=== PATIENT | male | born 1945 | race Caucasian/White ===

== ENCOUNTER 2020-03-01 22:26 | Inpatient (IN) ==
[2020-03-01 23:34] LABS: Basophils # (auto) 0.01 K/uL (0-0.2); Basophils % (auto) 0.1 %; Eosinophils % (auto) 2.3 %; Hematocrit (blood only) 36.4 % (42-52); Lymphocytes # (auto) 1.64 K/uL (1.2-3.4); Lymphocytes % (auto) 18.7 %; Mean Corpuscular Hemoglobin 31.6 pg (25-34); Mean Corpuscular Volume 95.8 fL (80-100); Mean Platelet Volume 11.9 fL (7.4-10.4); Monocytes # (auto) 0.92 K/uL (0.11-0.59); Monocytes % (auto) 10.5 %; Neutrophils # (auto) 6.02 K/uL (1.4-6.5); Neutrophils % (auto) 68.4 %; Platelet Count 189 K/uL (130-400); RDW Coefficient of Variation 15.5 % (11.5-14.5); RDW Standard Deviation 54.6 fL (36.4-46.3); White Blood Count 8.79 K/uL (4.8-10.8)
[2020-03-01 23:51] LABS: Albumin Level 3.3 gm/dl (3.4-5.0); BUN Creatinine Ratio 24.4 (10-20); Calcium 8.9 mg/dl (8.5-10.1); Creatinine Clr Calc Pharmacy 36.5 ml/min; Est GFR (African American) 45.4; Est GFR (Non-African American) 39.1; Magnesium 2.3 mg/dl (1.8-2.4); Potassium 4.4 mmol/L (3.5-5.1)
[2020-03-01 23:55] LABS: Bilirubin,Total 0.8 mg/dl (0.2-1); Globulin 3.3 gm/dl (2.5-4.0); Total Protein 6.6 gm/dl (6.4-8.2); Troponin I 0.018 ng/ml (0-0.045)
[2020-03-02 00:19] LABS: INR 1.2 (0.9-1.1); Partial Thromboplastin Ratio 1.1
[2020-03-02 00:20] LABS: D Dimer 1490 ug/L FEU (0-500)
[2020-03-02] MEDS ORDERED: FUROSEMIDE 40 MG/4 ML VIAL IV STA (00:35)
[2020-03-02 01:44] LABS: Appearance Urine Clear (Clear); Bacteria Urine Automated Negative (Negative); Bilirubin Urine Negative (Negative); Blood Urine Negative (Negative); Color Urine Dark Yellow; Epithelial Cell Urine Auto 0-5 /lpf (0-5); Glucose Urine UA Negative (Negative); Ketones Urine Negative (Negative); Leukocyte Esterase Urine Negative (Negative); Nitrite Urine Negative (Negative); Protein Urine 1+ (Negative); RBC Urine Automated 0-4 /hpf (0-4); Specific Gravity Urine 1.018 (1.000-1.030); Urobilinogen Urine Negative (Negative); pH Urine 5.5 (4.5-7.5)
--- NOTE | 2020-03-02 02:13 | History & Physical Report ---
Date of Service March 02, 2020 Assessment & Plan (1) Hypotension: Salas Dickson is a 74 year old man with a past medical history of NE ischemic cardiomyopathy with EF of 25% who presents with exertional dyspnea acute on chronic over last three days. Dyspnea Likely secondary to his underlying CHF vs new ischemia Also possible this could represent PE, d dimer elevated doppler of LE negative. Given patients renal function will get VQ scan His hypotension raises a challenge, would like to diurese but given his hypotension which he says is abnormal for him I don't want to drop his pressure further. 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 and acute on chronic CHF ALso will test for Lyme and get blood cultures given his being more outdoors lately and the recent infection of his pacemaker No elevated white count at present and does not appear septic Will check a COVID as well DANITZA Patient with chonic renal failure he tells me unsure of baseline Will need to obtain outside records May be acute on chronic secondary to lack of perfusion DVT PPx: LOvenox F/E/N: HEart heatlhy diet, low sodium and fluid restriction Dispo: PCU for close monitoring ICU if MAP's drop <65 FUll COde (2) CHF (congestive heart failure): (3) Ischemic cardiomyopathy with implantable cardioverter-defibrillator (ICD): History of Present Illness Chief Complaint: Exertional Dyspnea Primary Care Provider: Lucho Doss MD Mr. Salas Dickson is a 74 year old man with a past medical history significant for a major heart attack in 2013 and resultant severe CHF, per him at one time his EF was 5% and now is improved to 25%. He has an ICD in place and has a history of aortic stenosis and valve replacement surgery as well. He is here today because he has noticed that he has been more short of breath than usual lately and is really struggling with taking care of his daughter's farm (where he lives normally) and animals while she is away on vacation. He feels he is only able to walk about 50-70 yards before becoming short of breath. He has not had any chest pain. SHortness of breath would improve if he stopped and rested b ut it has been getting progressively worse with less and less activity for past three days. ANd maybe slightly progressive before that too. He has also been weaker than he typically is, tried to staple something yesterday and was unable to. He has had an increase in salt content in his diet recently, eating hot dog, he has also been drinking more water. Has not noticed any leg swelling. He normally follows with CT, had an infected pacemaker/Cardioverter/Defibrillator placed in the past but it became infected and he had to have a new one placed two months ago. Also with a history of mitral valve repair. Heart attack in 2013 with resultant ischemic cardiomyopathy EF most recently 25 % per patient. Records from CT will need to be obtained. ON presentation to ED patient is doing well resting comfortably not feeling currently short of breath while lying in bed. No CHest pain. Vitals significant for hypotension 91/64, oxygenating well on room air. labwork significant for anemia, hemoglobin of 12.0 near where he was on last visit to ED, no white count, INR of 1.2, D Dimer of 1490, BUN of 42 creatinine of 1.71, [place] [address], albumin of 3.3.chest x ray showing no focal infiltrate but cardiomegaly and some pulmonary vascular prominence. bilateral venous dopplers negative. 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 Full Code Allergies Allergy/AdvReac Type Severity Reaction Status Date / Time No Known Allergies Allergy Verified 03/01/20 23:46 Home Medications Home Medications Medication Instructions Recorded Confirmed Type allopurinol 100 mg PO DAILY 06/05/19 03/01/20 History furosemide 40 mg PO QAM 06/05/19 03/02/20 History losartan 12.5 mg PO DAILY 06/05/19 03/01/20 History spironolactone 12.5 mg PO DAILY 06/05/19 03/01/20 History atorvastatin 20 mg PO HS 03/01/20 03/01/20 History aspirin [Adult Low Dose Aspirin] 81 mg PO DAILY 03/02/20 03/02/20 History Past Med/Surg History Medical History (Updated 03/02/20 @ 14:02 by Bro Heard MD) Biventricular implantable cardioverter-defibrillator (ICD) in situ CAD (coronary artery disease) Chronic systolic CHF (congestive heart failure) COPD (chronic obstructive pulmonary disease) Dyslipidemia Hypertension Ischemic cardiomyopathy Mitral regurgitation Pacemaker infection Tricuspid regurgitation Surgical History (Updated 03/02/20 @ 14:02 by Bro Heard MD) S/P CABG x 3 S/P mitral valve replacement Family History Other No pertinent family history Social History Smoking Status: Former smoker Hx Alcohol Use: No Hx Substance Use: No Preferred Language: Mongolian Communication Ability: Effective 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 Beliefs That Will Affect Care: None Current Living Situation: Family Other Information That Helps Us Care for You: No Feels Safe at Home: Yes Safety Concerns: Feels Safe At This Time Assistive Devices: None Review of Systems Review of Systems: All systems reviewed & are unremarkable except as noted in HPI & below Physical Exam Physical Exam: Constitutional: Well Appearing man lying in bed with notable sternotomy scar visible Eyes: Anicteric sclerae, EOMMI PERRLA bilateraly ENMT: NAD Neck: Very prominent jugular venous distension Respiratory: Lungs clear,to auscultation, no rales appreciated, slightly increased work of breathing Cardiac: Notable systolic ejection murmur best appreciated left sternal border, regular rate regular rhythm, no lower limb edema appreciated GI: Abdomen soft, nontender Results & Data Results & Data ([facility]) Vital Signs (Past 12 Hours) Vital Signs Temp Pulse Pulse Resp BP BP Pulse Ox 03/02/20 01:00 74 18 91/64 L 96 03/01/20 23:35 76 18 101/72 97 03/01/20 23:30 96 03/01/20 23:28 98 03/01/20 22:27 36.6 C 82 22 109/71 99 Supervising Physician Co-Signing Physician Notes Attending addendum: I have physically seen this patient, have supervised the medical residents ac tivities, and agree with the H&P unless as otherwise noted. Assessment and Plan: Dyspnea on exertion- Differential includes CHF, pulmonary embolism, coronary ischemia, hypotension. VQ scan ordered for a.m, with inability to do CTA PE study due to renal insufficiency Generalized weakness- Patient was doing considerably more physical activity around the house. Test Lyme disease. Test for COVID-19. CAD/hypertension/ischemic cardiomyopathy/MVR/status post CABG/acute on chronic systolic heart failure/status post pacer- The patient will be admitted to telemetry for serial cardiac enzymes, serial EKG's, cardiac rhythm monitoring and a 2-D echocardiogram with Dopplers. Hold furosemide, losartan and spironolactone. Continue aspirin Remaining orders and notations as noted Resident Activity Tracking Resident Involvement: Resident Care Provided Care Provided: Adult [facility]
[2020-03-02] MEDS ORDERED: ONDANSETRON INJ 2 MG/ML 2 ML VIAL IV PRN (03:15)
[2020-03-02] MEDS ORDERED: ALUMINUM/MAGNESIUM SUSP 30 ML UDC PO PRN (03:15)
[2020-03-02] MEDS ORDERED: ACETAMINOPHEN 325 MG TAB PO PRN (03:15)
[2020-03-02] MEDS ORDERED: POLYETHYLENE (MIRALAX) 17 GM PACK PO PRN (03:15)
[2020-03-02 04:47] LABS: Lyme Ab IgG w/WB Rflx Negative (Negative)
[2020-03-02 05:21] LABS: Lyme Ab IgM w/WB Rflx Equivocal (Negative)
[2020-03-02 06:29] LABS: Basophils # (auto) 0.03 K/uL (0-0.2); Basophils % (auto) 0.4 %; Eosinophils # (auto) 0.21 K/uL (0-0.5); Eosinophils % (auto) 2.8 %; Hemoglobin 11.8 g/dL (14.0-18.0); Immature Granulocytes # (auto) 0.01 K/uL (0.00-0.02); Immature Granulocytes % (auto) 0.1 %; Lymphocytes # (auto) 1.68 K/uL (1.2-3.4); Lymphocytes % (auto) 22.5 %; Mean Corpuscular Hemoglobin 31.5 pg (25-34); Mean Corpuscular Hgb Conc 32.8 g/dL (32-36); Mean Platelet Volume 12.1 fL (7.4-10.4); Monocytes # (auto) 0.86 K/uL (0.11-0.59); Monocytes % (auto) 11.5 %; Neutrophils # (auto) 4.69 K/uL (1.4-6.5); Neutrophils % (auto) 62.7 %; Platelet Count 184 K/uL (130-400); RDW Coefficient of Variation 15.6 % (11.5-14.5); RDW Standard Deviation 54.6 fL (36.4-46.3); Red Blood Count 3.75 M/uL (4.7-6.1); White Blood Count 7.48 K/uL (4.8-10.8)
--- NOTE | 2020-03-02 07:02 | Emergency Department Note ---
History of Present Illness General Chief complaint: Shortness of Breath/Dyspnea Stated complaint: SOB, WEAKNESS Source: patient and RN notes reviewed Mode of arrival: ambulatory Limitations: no limitations History of Present Illness Provider complaint: Shortness of breath with exertion, chest discomfort This patient is a 74-year-old male who presents emergency department with complaint of increasing shortness of breath with exertion, fatigue and a substernal chest pressure. The patient states he [facility] He feels that only the last for 5 days have been particularly difficult. He denies any bleeding any fevers any vomiting. He states he has had a "valve surgery" as well as a CABG in the past. He denies any blood thinners. He admits to a long history of congestive heart failure with a low EF, he believes approximately 20%. Home Medications Home Medications Medication Instructions Recorded Confirmed Type allopurinol 100 mg PO DAILY 06/05/19 03/01/20 History furosemide 20 mg PO BID 06/05/19 03/01/20 History losartan 12.5 mg PO DAILY 06/05/19 03/01/20 History spironolactone 12.5 mg PO DAILY 06/05/19 03/01/20 History atorvastatin 20 mg PO HS 03/01/20 03/01/20 History Allergies Allergy/AdvReac Type Severity Reaction Status Date / Time No Known Allergies Allergy Verified 03/01/20 23:46 Past Med/Surg History Medical History (Updated 03/02/20 @ 07:19 by Susan Bentley MD) CHF (congestive heart failure) Ischemic cardiomyopathy with implantable cardioverter-defibrillator (ICD) Pacemaker infection Surgical History No pertinent past surgical history Family History Other No pertinent family history Social History Smoking Status: Former smoker Hx Alcohol Use: No Hx Substance Use: No Preferred Language: Iraqi Communication Ability: Effective 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 and A total of 10 systems reviewed and were otherwise negative Physical Exam Vital Signs Vital Signs - 24 hr 03/01/20 22:27 03/01/20 23:28 03/01/20 23:30 Temperature 36.6 C Temperature Source Oral Pulse Rate 82 Pulse Rate [Right Finger] Pulse Rhythm Regular Pulse Strength Normal Respiratory Rate 22 Respiratory Effort / Characteristics Non-Labored Respiratory Depth Normal Respiratory Pattern Blood Pressure 109/71 Blood Pressure [Right Arm] Blood Pressure Mean 83 Blood Pressure Mean [Right Arm] Blood Pressure Position Sitting Blood Pressure Position [Right Arm] Pulse Oximetry 99 98 96 Oxygen Delivery Method Room Air Room Air Room Air Sepsis New/Unexplained Change in Mental Status N/A Sepsis Action Taken by Nursing No Action Required 03/01/20 23:31 03/01/20 23:35 03/02/20 01:00 Temperature Temperature Source Pulse Rate Pulse Rate [Right Finger] 76 74 Pulse Rhythm Pulse Strength Respiratory Rate 18 18 Respiratory Effort / Characteristics Non-Labored Respiratory Depth Normal Normal Normal Respiratory Pattern Regular Blood Pressure Blood Pressure [Right Arm] 101/72 91/64 L Blood Pressure Mean Blood Pressure Mean [Right Arm] 81 73 Blood Pressure Position Blood Pressure Position [Right Arm] Lying Lying Pulse Oximetry 97 96 Oxygen Delivery Method Room Air Room Air Room Air Sepsis New/Unexplained Change in Mental Status Sepsis Action Taken by Nursing Vital signs reviewed. General: Chronically ill-appearing 74 yo male, in no significant distress. HEENT: No scleral icterus, PERRLA, neck supple. Atraumatic. Cardiovascular: Regular rate and rhythm, systolic ejection murmur. Occasional ectopy. Pulmonary: Clear to auscultation bilaterally, normal work of breathing. Abdomen: Soft, nontender, nondistended, positive bowel sounds. Musculoskeletal: Atraumatic, no peripheral edema. Neurologic: Patient awake alert and oriented x 3 Skin: Warm, dry, no rash. Postsurgical changes noted to the anterior chest wall Course Administered Medications Discontinued Medications Furosemide (Furosemide 40 Mg/4 Ml Vial) 40 mg IV NOW STA Stop: 03/02/20 00:36 Last Admin: 03/02/20 01:43 Dose: Not Given Documented by: [id number] Medical Decision Making Differential Diagnosis DDx: Acute coronary syndrome, pulmonary embolus, aortic dissection, musculoskeletal pain, pneumonia, pleural effusion, pneumothorax, GERD, pancreatitis, PUD Medical Records Attestation: I reviewed the patient's medical records. Home Medications Current Medication List: was personally reviewed by me Laboratory Data Attestation: I reviewed the patient's lab results. Result diagrams: 03/02/20 06:18 03/01/20 23:23 Lab Results 03/01/20 03/01/20 03/01/20 Range/Units 23:23 23:23 23:25 WBC 8.79 (4.8-10.8) K/uL RBC 3.80 L (4.7-6.1) M/uL Hgb 12.0 L (14.0-18.0) g/dL Hct 36.4 L (42-52) % MCV 95.8 (80-100) fL MCH 31.6 (25-34) pg MCHC 33.0 (32-36) g/dL RDW Std Deviation 54.6 H (36.4-46.3) fL RDW Coeff of Sommer 15.5 H (11.5-14.5) % Plt Count 189 (130-400) K/uL MPV 11.9 H (7.4-10.4) fL Immature Gran % (Auto) 0.0 % Neut % (Auto) 68.4 % Lymph % (Auto) 18.7 % Cache % (Auto) 10.5 % Eos % (Auto) 2.3 % Baso % (Auto) 0.1 % Neut # (Auto) 6.02 (1.4-6.5) K/uL Lymph # (Auto) 1.64 (1.2-3.4) K/uL Cache # (Auto) 0.92 H (0.11-0.59) K/uL Eos # (Auto) 0.20 (0-0.5) K/uL Baso # (Auto) 0.01 (0-0.2) K/uL Immature Gran # (Auto) 0.00 (0.00-0.02) K/uL PT 13.0 H (9.0-12.0) Seconds INR 1.2 H (0.9-1.1) APTT 30.0 (21.0-31.0) Seconds PTT Ratio 1.1 D-Dimer 1490 H* (0-500) ug/L FEU Sodium 140 (136-145) mmol/L Potassium 4.4 (3.5-5.1) mmol/L Chloride 110 H (98-107) mmol/L Carbon Dioxide 25 (21-32) mmol/L Anion Gap 5.0 (3-11) BUN 42 H (7-18) mg/dl Creatinine 1.71 H (0.6-1.4) mg/dl Est Cr Clr Drug Dosing 36.5 ml/min Est GFR ( Amer) 45.4 Est GFR (Non-Af Amer) 39.1 BUN/Creatinine Ratio 24.4 H (10-20) Glucose 129 H (70-99) mg/dl Calcium 8.9 (8.5-10.1) mg/dl Magnesium 2.3 (1.8-2.4) mg/dl Total Bilirubin 0.8 (0.2-1) mg/dl AST 31 (15-37) U/L ALT 45 (12-78) U/L Alkaline Phosphatase 138 H (45-117) U/L Troponin I 0.018 (0-0.045) ng/ml NT-Pro-B Natriuret Pep 25734 H (0-900) pg/ml Total Protein 6.6 (6.4-8.2) gm/dl Albumin 3.3 L (3.4-5.0) gm/dl Globulin 3.3 (2.5-4.0) gm/dl Albumin/Globulin Ratio 1.0 (0.9-2) Urine Color Urine Appearance (Clear) Urine pH (4.5-7.5) Ur Specific [place] (1.000-1.030) Urine Protein (Negative) Urine Glucose (UA) (Negative) Urine Ketones (Negative) Urine Blood (Negative) Urine Nitrite (Negative) Urine Bilirubin (Negative) Urine Urobilinogen (Negative) Ur Leukocyte Esterase (Negative) Urine WBC (Auto) (0-5) /hpf Urine RBC (Auto) (0-4) /hpf U Hyaline Cast (Auto) (0-5) /lpf U Epithel Cells (Auto) (0-5) /lpf Urine Bacteria (Auto) (Negative) 03/02/20 Range/Units 01:37 WBC (4.8-10.8) K/uL RBC (4.7-6.1) M/uL Hgb (14.0-18.0) g/dL Hct (42-52) % MCV (80-100) fL MCH (25-34) pg MCHC (32-36) g/dL RDW Std Deviation (36.4-46.3) fL RDW Coeff of Sommer (11.5-14.5) % Plt Count (130-400) K/uL MPV (7.4-10.4) fL Immature Gran % (Auto) % Neut % (Auto) % Lymph % (Auto) % Cache % (Auto) % Eos % (Auto) % Baso % (Auto) % Neut # (Auto) (1.4-6.5) K/uL Lymph # (Auto) (1.2-3.4) K/uL [place] # (Auto) (0.11-0.59) K/uL Eos # (Auto) (0-0.5) K/uL Baso # (Auto) (0-0.2) K/uL Immature Gran # (Auto) (0.00-0.02) K/uL PT (9.0-12.0) Seconds INR (0.9-1.1) APTT (21.0-31.0) Seconds PTT Ratio D-Dimer (0-500) ug/L FEU Sodium (136-145) mmol/L Potassium (3.5-5.1) mmol/L Chloride (98-107) mmol/L Carbon Dioxide (21-32) mmol/L Anion Gap (3-11) BUN (7-18) mg/dl Creatinine (0.6-1.4) mg/dl Est Cr Clr Drug Dosing ml/min Est GFR ( Amer) Est GFR (Non-Af Amer) BUN/Creatinine Ratio (10-20) Glucose (70-99) mg/dl Calcium (8.5-10.1) mg/dl Magnesium (1.8-2.4) mg/dl Total Bilirubin (0.2-1) mg/dl AST (15-37) U/L ALT (12-78) U/L Alkaline Phosphatase (45-117) U/L Troponin I (0-0.045) ng/ml NT-Pro-B Natriuret Pep (0-900) pg/ml Total Protein (6.4-8.2) gm/dl Albumin (3.4-5.0) gm/dl Globulin (2.5-4.0) gm/dl Albumin/Globulin Ratio (0.9-2) Urine Color Dark Yellow Urine Appearance Clear (Clear) Urine pH 5.5 (4.5-7.5) Ur Specific [place] 1.018 (1.000-1.030) Urine Protein 1+ H (Negative) Urine Glucose (UA) Negative (Negative) Urine Ketones Negative (Negative) Urine Blood Negative (Negative) Urine Nitrite Negative (Negative) Urine Bilirubin Negative (Negative) Urine Urobilinogen Negative (Negative) Ur Leukocyte Esterase Negative (Negative) Urine WBC (Auto) 1-5 (0-5) /hpf Urine RBC (Auto) 0-4 (0-4) /hpf U Hyaline Cast (Auto) 1-5 (0-5) /lpf U Epithel Cells (Auto) 0-5 (0-5) /lpf Urine Bacteria (Auto) Negative (Negative) Imaging Data Attestation: I personally reviewed and interpreted this imaging study as follows: My Impression: Chest x-ray to my interpretation reveals cardiomegaly, pacemaker in place sternotomy wires. No focal lung consolidation, no failure ECG Data Attestation: I personally reviewed and interpreted this ECG as follows: Indication: + chest pain Rate (beats per minute): 84 Rhythm: + normal sinus ECG Intervals/blocks: + Left bundle branch block and + Prolonged QT (489) ECG [place]: + Left axis deviation ECG Findings: + Q waves (Inferior) and + PVCs Blood Pressure Blood Pressure Findings: Low blood pressure Blood Pressure Disposition: further management by hospitalist TOMÁS Malloy This patient was evaluated and appeared to be in no significant distress. IV access was obtained and laboratory work was drawn. An order for cardiac monitoring was placed and the patient was found to be in a sinus rhythm with frequent PVCs at 78 bpm. Chest x-ray reveals cardiomegaly with pacemaker in poststernotomy change however there is no evidence of failure or focal lung consolidation. Patient's laboratory work reveals a markedly elevated BNP greater than 30,000, elevated D-dimer and creatinine of 1.71. EKG reveals a sinus rhythm with frequent PVCs but no evidence of acute ST elevation [place]. 40 mg of IV Lasix was ordered however the patient's blood pressure was hovering around 100 systolic. Nursing staff held the Lasix and the order was canceled. Case was discussed with Dr. Fan of the hospitalist service who will evaluate the patient for further management. Impression & Plan CHF (congestive heart failure), Ischemic cardiomyopathy with implantable cardioverter-defibrillator (ICD) Discharge Plan Visit Data Chief Complaint: Shortness of Breath/Dyspnea Stated Complaint: SOB, WEAKNESS ED Provider: Susna Bentley Discharge Problem: CHF (congestive heart failure), Ischemic cardiomyopathy with implantable cardioverter-defibrillator (ICD) Patient Disposition: Admitted As Inpatient Discharge Instructions Interventions: ED Discharge Assessment Last Done: 03/02/20 02:57 Discharge Problem: CHF (congestive heart failure) Qualifiers: Heart failure type: unspecified Heart failure chronicity: acute on chronic Qualified Code(s): I50.9 - Heart failure, unspecified
[2020-03-02 07:04] LABS: Albumin Level 3.1 gm/dl (3.4-5.0); BUN Creatinine Ratio 23.8 (10-20); Calcium 8.7 mg/dl (8.5-10.1); Creatinine Clr Calc Pharmacy 38.2 ml/min; Est GFR (African American) 48.4; Est GFR (Non-African American) 41.8; Magnesium 2.3 mg/dl (1.8-2.4); Potassium 4.5 mmol/L (3.5-5.1)
[2020-03-02 07:07] LABS: Bilirubin,Total 1.1 mg/dl (0.2-1); Globulin 3.2 gm/dl (2.5-4.0); Phosphorus 4.3 mg/dl (2.5-4.9); Total Protein 6.3 gm/dl (6.4-8.2)
--- NOTE | 2020-03-02 07:57 | Ultrasound Report ---
BILATERAL LOWER EXTREMITY VENOUS DOPPLER HISTORY: Acute pain and swelling of the lower extremities with shortness of breath DVT COMPARISON STUDY: None. FINDINGS: There is normal compressibility, flow, and augmentation within the bilateral lower extremit y deep venous systems. Within the right popliteal fossa there is a complex hypoechoic septated struct ure measuring 2.7 x 0.7 x 0.8 cm suggestive of a probable Travis's cyst. IMPRESSION: No DVT within the right or left lower extremity. ACT 112: Negative or not required by law. Electronically signed by: Sher Martin M.D. 03/02/2020 7:56 AM
--- NOTE | 2020-03-02 08:02 | XRay Report ---
XR chest 1V portable HISTORY: 74 years-old Male Dyspnea acute shortness of breath COMPARISON: Chest radiographs 06/05/2019 TECHNIQUE: Portable AP view of the chest FINDINGS: Cardiac silhouette is enlarged, unchanged. Prior median sternotomy with CABG and cardiac valvular pro sthesis. Calcific plaque of the thoracic aortic arch. Right subclavian pacer/AICD, new from compariso n. No pneumothorax, pleural effusion, overt pulmonary edema or airspace consolidation typical for pne umonia. Minimal linear subsegmental bibasilar atelectasis/scarring. Degenerative changes of the shoul ders and spine. IMPRESSION: Cardiomegaly without acute process. ACT 112: Negative or not required by law. The above report was generated using voice recognition software. It may contain grammatical, syntax o r spelling errors. Electronically signed by: Sher Martin M.D. 03/02/2020 8:01 AM
[2020-03-02] MEDS: allopurinoL 100 MG TAB PO SCH (08:35)
--- NOTE | 2020-03-02 08:52 | XCELERA ---
[id number]
[2020-03-02] MEDS ORDERED: SPIRONOLACTONE 12.5 MG TAB PO SCH (09:00)
--- NOTE | 2020-03-02 09:58 | Medical Student Progress Note ---
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 -Patient with chronic renal failure he tells me unsure of baseline -Will need to obtain outside records -May be acute on chronic secondary to lack of perfusion -Trend w/BMP 4) Ischemic cardiomyopathy: Troponin neg x2 -Continue metoprolol succinate 12.5 mg daily -Continue losartan -Possibility of Entresto in outpatient setting -ICD: Biventricular ICD for primary prevention. Follows with [facility] in [place]. 5) CAD s/p CABG x 3: No angina -Continue ASA 81 mg daily -Continue atorvastatin 20mg. -Resume beta-wayne as above 6) Dyslipidemia: Continue statin therapy as above DVT PPx: Lovenox F/E/N: Heart healthy diet, low sodium and fluid restriction Dispo: PCU for close monitoring ICU if MAP's drop <65 Admission and Anticipated Discharge Date Admission Date: March 02, 2020 Supervising Attestation I personally examined the patient and verified all julien points of history and exam, discussed case, and agree with decision making with Dorys Nieves MS4. feeling better but still significant OCONNELL. ate sodium he doesnt normally eat. vitals noted nad heent nc at mmm lungs show ongoing bibasilar rales no rhonchi no wheeze good effort skin no rashes no pallor or icterus neuro no focal deficits acute on chronic systolic CHF (HFrEF) - dietary sodium and/or med nonadherence as culprits superimposed on severe cardiomyopathy. ongoing diuresis, resume meds, possibly entresto if his BP could support it. otherwise as above Subjective Mr. Dickson states that last night he had to sleep with the head of his bed elevated as he has for the last few nights. He denies any pain in his chest and denies any swelling. He notes that he did have an increase in salt intake on Friday with beef hot dogs and potato chips. Review of Systems Constitutional: + fatigue; no fever, no chills and no sweats Respiratory: + dyspnea and + dyspnea on exertion; no cough and no pain on inspiration Cardiovascular: + dyspnea and + orthopnea; no palpitations and no edema Gastrointestinal: no abdominal pain, no bloating, no nausea and no vomiting Physical Exam Constitutional: Well appearing gentleman in no acute distress resting comfortably with the head of his bed elevated Eyes: PERRL, conjunctivae normal, anicteric sclerae Respiratory: Lungs clear to auscultation bilaterally, no wheezes, rales or rhonchi. Normal work of breathing. Cardiovascular: Regular rate and rhythm, 3/6 systolic murmur, +JVD, no peripheral edema Gastrointestinal (Abdomen): Normoactive bowel sounds, abdomen nontender to palpation, no hepatosplenomegaly. Psychiatric: A+Ox3, euthymic affect Results & Data ([facility]) Vital Signs (Past 12 Hours) Vital Signs Temp Pulse Pulse Resp BP BP Pulse Ox 03/02/20 08:07 36.5 C 68 17 103/71 93 03/02/20 03:42 80 03/02/20 03:16 36.2 C L 80 16 102/73 100 03/02/20 03:15 36.2 C L 80 16 102/73 100 03/02/20 02:57 72 16 100/71 98 03/02/20 01:00 74 18 91/64 L 96 03/01/20 23:35 76 18 101/72 97 03/01/20 23:30 96 03/01/20 23:28 98 03/01/20 22:27 36.6 C 82 22 109/71 99
--- NOTE | 2020-03-02 11:01 | Nuclear Medicine Report ---
NM pul perfusion HISTORY: 74 years-old Male Concern for PE acute shortness of breath COMPARISON: Chest radiograph 03/01/2020, duplex venous Doppler study 03/02/2020 TECHNIQUE: Perfusion study was obtained following the intravenous administration of 5.3 mCi technetiu m 99 MAA administered via the right upper extremity. Ventilation portion of the study was not conduct ed secondary to current institutional pandemic/droplet precautions. FINDINGS: Chest radiograph obtained on 03/01/2020 demonstrate cardiomegaly without acute process. Duplex venous Doppler study obtained same day demonstrates no DVT. Perfusion images demonstrate no large segmental perfusion defects. IMPRESSION: Low probability for pulmonary embolus. ACT 112: Negative or not required by law. The above report was generated using voice recognition software. It may contain grammatical, syntax o r spelling errors. Electronically signed by: Sher Martin M.D. 03/02/2020 11:00 AM
--- NOTE | 2020-03-02 13:30 | Cardiology Consultation ---
Date of Consultation March 02, 2020 Assessment & Plan (1) Acute on chronic systolic (congestive) heart failure: (2) Ischemic cardiomyopathy: (3) CAD (coronary artery disease): (4) S/P CABG x 3: (5) S/P mitral valve replacement: (6) Mitral regurgitation: (7) Tricuspid regurgitation: (8) Nonsustained ventricular tachycardia: (9) Dyslipidemia: ASSESSMENT/PLAN: 1. Acute on chronic systolic CHF: Presentation consistent with CHF exacerbation, likely due to increased sodium consumption in the setting of significantly reduced LV systolic function and valvular heart disease. Will order Lasix 40 mg IV now and daily. Fortunately, he has improved. Strict I&Os recommended. Daily weights. We discussed importance of a low-sodium diet, less than 2000 mg daily. Recommended daily weights at home. Close follow-up with his primary material scheduler recommended. 2. Ischemic cardiomyopathy: He apparently had been taking metoprolol succinate 12.5 mg daily but has stopped taking it on his own accord. Will resume that dose now and if tolerated, would recommend titrating. Continue losartan at current dose for now. His primary material scheduler plans on initiating Entresto if tolerated and [facility]. 3. ICD: Biventricular ICD for primary prevention. [facility] [place]. 4. CAD s/p CABG x 3: No angina. Continue aspirin 81 mg daily. Continue statin therapy. Resume beta-wayne. No ischemic evaluation necessary at this time as it appears as though his LV systolic function has remained stable for many years. 5. Mitral valve replacement with mitral regurgitation: He was reported as having [facility] as [facility]. Stable findings. SBE prophylaxis for dental procedures. Follow with primary material scheduler. 6. Tricuspid regurgitation: Significant tricuspid regurgitation was also reported [facility]. Follow over time. 7. Nonsustained ventricular tachycardia: Resuming beta-wayne as above. He appears to be asymptomatic. ICD in place for more significant episodes. 8. Dyslipidemia: Continue statin therapy. 9. Disposition: Cardiology will continue to follow. Patient care discussed with primary hospitalist, Dr. Contreras, as well as [facility] scheduler [facility], Tracy Jaeger. His primary material scheduler plans on making an appointment to see him soon after discharge. Continue to follow with [facility] on discharge for close heart failure management. Highly complex medical issues. Thank you for allowing me to participate in the care of your patient. Please call for any other questions or concerns. Sincerely, Reno Heard M.D. History of Present Illness Reason for Consultation: CHF Requesting Physician: Ton Attending Physician: Henry Contreras DO History of Present Illness Mr. Dickson is a pleasant 74-year-old gentleman with history significant for ischemic cardiomyopathy s/p biventricular ICD, systolic CHF, multivessel CAD s/p CABG x 3, mitral valve replacement, mitral and tricuspid regurgitation, hypertension, dyslipidemia, and COPD. His primary material scheduler is through the [facility], Tracy Jaeger. In 2006, while in [place], [place], he underwent cardiac catheterization, mitral valve replacement and CABG x3. He also went ICD for primary prevention. In regards to his CABG, based on chest x-ray imaging, GARCIA was utilized but other details are not known at the time of this note. He reports having an LV ejection fraction of 5% at the time of surgery. His most recent EF on an echo at the [facility] November 2019 was 15-20%. He had a generator change in 2012 or at the [facility] but developed an infected pocket and it was removed 3-4 months later. He went sometime without reimplantation until November of 2019 in the [facility] according to his report. This most recent device is a biventricular device. Because records were not available at the time of our meeting, his primary material scheduler, Tracy Jaeger, was contacted personally via telephone. She reports that he has had issues with medication noncompliance over the years. He has been prescribed metoprolol succinate 12.5 mg daily however the prescription and he has not refilled the medication. She has been planning to potentially initiate Entresto at his next appointment. His most recent echo at the [facility] was November of 2019 with LVEF of 15-20%, moderate MR, and moderate to severe TR with [id number] pulmonary hypertension. He has been feeling well overall until the last 2 or 3 days when he developed shortness of breath. Mostly he has noted dyspnea with exertion even with little exertion, but also reports orthopnea. He was unable to sleep the other night. He admits that 2 days ago he enjoyed I hot dog and potato chips as his daughter is out of town and [place]. He states that he has been taking Lasix 40 mg daily as well as aspirin 81 mg daily although it does not appear on his initial medication list. He agrees that he takes spironolactone 12.5 mg daily as well as low-dose losartan. He denies any chest discomfort, syncope, near-syncope, recent palpitations, or bleeding such as melena, hematochezia, or hematuria. He has not had an ICD shock ever. He had some short runs of nonsustained ventricular tachycardia on telemetry but denies palpitations while here. After has improved but not yet back to baseline. He still has dyspnea with exertion. Orthopnea has resolved and he was able to sleep. Review of systems: As above. Review of systems otherwise negative/unremarkable. Family history: Brother with CAD. Social history: Quit smoking in approximately 2017 after smoking up to a pack per day for many years. Rare alcohol. No drugs. x2. 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 He has 4 children. He travels often. 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 He was unaccompanied in his hospital room. Allergies Allergy/AdvReac Type Severity Reaction Status Date / Time No Known Allergies Allergy Verified 03/01/20 23:46 Home Medications Home Medications Medication Instructions Recorded Confirmed Type allopurinol 100 mg PO DAILY 06/05/19 03/01/20 History furosemide 20 mg PO BID 06/05/19 03/01/20 History losartan 12.5 mg PO DAILY 06/05/19 03/01/20 History spironolactone 12.5 mg PO DAILY 06/05/19 03/01/20 History atorvastatin 20 mg PO HS 03/01/20 03/01/20 History aspirin [Adult Low Dose Aspirin] 81 mg PO DAILY 03/02/20 03/02/20 History Patient History Medical History (Updated 03/02/20 @ 14:02 by Bro Heard MD) Biventricular implantable cardioverter-defibrillator (ICD) in situ CAD (coronary artery disease) Chronic systolic CHF (congestive heart failure) COPD (chronic obstructive pulmonary disease) Dyslipidemia Hypertension Ischemic cardiomyopathy Mitral regurgitation Pacemaker infection Tricuspid regurgitation Surgical History (Updated 03/02/20 @ 14:02 by Bro Heard MD) S/P CABG x 3 S/P mitral valve replacement Family History Other No pertinent family history Social History Smoking Status: Former smoker Hx Alcohol Use: No Hx Substance Use: No Preferred Language: Uzbek Communication Ability: Effective Product Safety Test Engineer Required: No Beliefs That Will Affect Care: None Current Living Situation: Family Other Information That Helps Us Care for You: No Feels Safe at Home: Yes Safety Concerns: Feels Safe At This Time Assistive Devices: Cane and Glasses Physical Exam Physical Exam: Gen.: No acute distress. Alert and oriented. HEENT: Anicteric sclera. Neck: JVD to the mandible sitting nearly upright. Prominent V wave. No b ruits. Normal carotid upstrokes bilaterally. Cardiac: PMI was nonpalpable. No ventricular heave. Regular with ectopy. Normal S1-S2. 2/6 systolic murmur. No rubs, or gallops. Pulmonary: Clear to auscultation bilaterally without wheezes, rales, or rhonchi. Abdomen: Soft, nontender, nondistended, with normoactive bowel sounds. No bruits noted. Extremities: 2+ radial pulses bilaterally. 2+ posterior tibialis pulses bilaterally. Trace bilateral lower extremity edema. No cyanosis. Psychiatric: Affect appears appropriate. Results & Data ([facility]) Vital Signs (Past 12 Hours) Vital Signs Temp Pulse Pulse Resp BP BP Pulse Ox 03/02/20 12:01 36.7 C 73 17 101/75 94 03/02/20 08:07 36.5 C 68 17 103/71 93 03/02/20 03:42 80 03/02/20 03:16 36.2 C L 80 16 102/73 100 03/02/20 03:15 36.2 C L 80 16 102/73 100 03/02/20 02:57 72 16 100/71 98 Intake & Output 02/29/20 03/01/20 03/02/20 03/03/20 06:59 06:59 06:59 06:59 Weight 65.5 kg Laboratory Results Laboratory Results - last 24 hr 03/01/20 03/01/20 03/01/20 23:23 23:23 23:25 WBC 8.79 RBC 3.80 L Hgb 12.0 L Hct 36.4 L MCV 95.8 MCH 31.6 MCHC 33.0 RDW Std Deviation 54.6 H RDW Coeff of Sommer 15.5 H Plt Count 189 MPV 11.9 H Immature Gran % (Auto) 0.0 Neut % (Auto) 68.4 Lymph % (Auto) 18.7 Cherry % (Auto) 10.5 Eos % (Auto) 2.3 Baso % (Auto) 0.1 Neut # (Auto) 6.02 Lymph # (Auto) 1.64 Cherry # (Auto) 0.92 H Eos # (Auto) 0.20 Baso # (Auto) 0.01 Immature Gran # (Auto) 0.00 PT 13.0 H INR 1.2 H APTT 30.0 PTT Ratio 1.1 D-Dimer 1490 H* Sodium 140 Potassium 4.4 Chloride 110 H Carbon Dioxide 25 Anion Gap 5.0 BUN 42 H Creatinine 1.71 H Est Cr Clr Drug Dosing 36.5 Est GFR ( Amer) 45.4 Est GFR (Non-Af Amer) 39.1 BUN/Creatinine Ratio 24.4 H Glucose 129 H Calcium 8.9 Phosphorus Magnesium 2.3 Total Bilirubin 0.8 AST 31 ALT 45 Alkaline Phosphatase 138 H Troponin I 0.018 NT-Pro-B Natriuret Pep 37464 H Total Protein 6.6 Albumin 3.3 L Globulin 3.3 Albumin/Globulin Ratio 1.0 Urine Color Urine Appearance Urine pH Ur Specific [place] Urine Protein Urine Glucose (UA) Urine Ketones Urine Blood Urine Nitrite Urine Bilirubin Urine Urobilinogen Ur Leukocyte Esterase Urine WBC (Auto) Urine RBC (Auto) U Hyaline Cast (Auto) U Epithel Cells (Auto) Urine Bacteria (Auto) Lyme Disease IgG Ab Lyme IgG (Western Blot) Lyme IgG 18 kDa Band Lyme IgG 23 kDa Band Lyme IgG 28 kDa Band Lyme IgG 30 kDa Band Lyme IgG 39 kDa Band Lyme IgG 41 kDa Band Lyme IgG 45 kDa Band Lyme IgG 58 kDa Band Lyme IgG 66 kDa Band Lyme IgG 93 kDa Band Lyme IgM Ab (WB) Lyme Disease IgM Ab Lyme IgM 23 kDa Band Lyme IgM 39 kDa Band Lyme IgM 41 kDa Band 03/02/20 03/02/20 03/02/20 01:37 02:28 02:28 WBC RBC Hgb Hct MCV MCH MCHC RDW Std Deviation RDW Coeff of Sommer Plt Count MPV Immature Gran % (Auto) Neut % (Auto) Lymph % (Auto) Cherry % (Auto) Eos % (Auto) Baso % (Auto) Neut # (Auto) Lymph # (Auto) Cherry # (Auto) Eos # (Auto) Baso # (Auto) Immature Gran # (Auto) PT INR APTT PTT Ratio D-Dimer Sodium Potassium Chloride Carbon Dioxide Anion Gap BUN Creatinine Est Cr Clr Drug Dosing Est GFR ( Amer) Est GFR (Non-Af Amer) BUN/Creatinine Ratio Glucose Calcium Phosphorus Magnesium Total Bilirubin AST ALT Alkaline Phosphatase Troponin I NT-Pro-B Natriuret Pep Total Protein Albumin Globulin Albumin/Globulin Ratio Urine Color Dark Yellow Urine Appearance Clear Urine pH 5.5 Ur Specific [place] 1.018 Urine Protein 1+ H Urine Glucose (UA) Negative Urine Ketones Negative Urine Blood Negative Urine Nitrite Negative Urine Bilirubin Negative Urine Urobilinogen Negative Ur Leukocyte Esterase Negative Urine WBC (Auto) 1-5 Urine RBC (Auto) 0-4 U Hyaline Cast (Auto) 1-5 U Epithel Cells (Auto) 0-5 Urine Bacteria (Auto) Negative Lyme Disease IgG Ab Negative Lyme IgG (Western Blot) Pending Lyme IgG 18 kDa Band Pending Lyme IgG 23 kDa Band Pending Lyme IgG 28 kDa Band Pending Lyme IgG 30 kDa Band Pending Lyme IgG 39 kDa Band Pending Lyme IgG 41 kDa Band Pending Lyme IgG 45 kDa Band Pending Lyme IgG 58 kDa Band Pending Lyme IgG 66 kDa Band Pending Lyme IgG 93 kDa Band Pending Lyme IgM Ab (WB) Pending Lyme Disease IgM Ab Equivocal A Lyme IgM 23 kDa Band Pending Lyme IgM 39 kDa Band Pending Lyme IgM 41 kDa Band Pending 03/02/20 03/02/20 03/02/20 06:18 06:18 06:18 WBC 7.48 RBC 3.75 L Hgb 11.8 L Hct 36.0 L MCV 96.0 MCH 31.5 MCHC 32.8 RDW Std Deviation 54.6 H RDW Coeff of Sommer 15.6 H Plt Count 184 MPV 12.1 H Immature Gran % (Auto) 0.1 Neut % (Auto) 62.7 Lymph % (Auto) 22.5 Cherry % (Auto) 11.5 Eos % (Auto) 2.8 Baso % (Auto) 0.4 Neut # (Auto) 4.69 Lymph # (Auto) 1.68 Cherry # (Auto) 0.86 H Eos # (Auto) 0.21 Baso # (Auto) 0.03 Immature Gran # (Auto) 0.01 PT INR APTT PTT Ratio D-Dimer Sodium 141 Potassium 4.5 Chloride 110 H Carbon Dioxide 24 Anion Gap 7.0 BUN 39 H Creatinine 1.62 H Est Cr Clr Drug Dosing 38.2 Est GFR ( Amer) 48.4 Est GFR (Non-Af Amer) 41.8 BUN/Creatinine Ratio 23.8 H Glucose 86 Calcium 8.7 Phosphorus 4.3 Magnesium 2.3 Total Bilirubin 1.1 H AST 29 ALT 42 Alkaline Phosphatase 129 H Troponin I 0.019 NT-Pro-B Natriuret Pep Total Protein 6.3 L Albumin 3.1 L Globulin 3.2 Albumin/Globulin Ratio 1.0 Urine Color Urine Appearance Urine pH Ur Specific [place] Urine Protein Urine Glucose (UA) Urine Ketones Urine Blood Urine Nitrite Urine Bilirubin Urine Urobilinogen Ur Leukocyte Esterase Urine WBC (Auto) Urine RBC (Auto) U Hyaline Cast (Auto) U Epithel Cells (Auto) Urine Bacteria (Auto) Lyme Disease IgG Ab Lyme IgG (Western Blot) Lyme IgG 18 kDa Band Lyme IgG 23 kDa Band Lyme IgG 28 kDa Band Lyme IgG 30 kDa Band Lyme IgG 39 kDa Band Lyme IgG 41 kDa Band Lyme IgG 45 kDa Band Lyme IgG 58 kDa Band Lyme IgG 66 kDa Band Lyme IgG 93 kDa Band Lyme IgM Ab (WB) Lyme Disease IgM Ab Lyme IgM 23 kDa Band Lyme IgM 39 kDa Band Lyme IgM 41 kDa Band Diagnostic Findings Echo 03/02/2020 personally reviewed: Severely dilated LV with severely reduced systolic function. EF 15%. Mild hypokinesis involving the base to mid anterolateral, basal anterior, and basal inferolateral wall segments. Otherwise, global severe hypokinesis to akinesis. Mildly dilated RV with normal systolic function. Severe left atrial dilation. Moderate right atrial dilation. Bioprosthetic mitral valve with at least moderate MR. Severe TR. RVSP 36. ECG 03/01/2020 personally reviewed: Sinus rhythm with PVCs. IVCB. Lateral T- wave inversion. Telemetry personally reviewed: Predominantly sinus rhythm. Paroxysmal nonsustained ventricular tachycardia. V/Q scan 03/02/2020: Low probability for PE. Chest x-ray 03/01/2020: No acute process per Radiology. Chest x-ray personally reviewed. No obvious infiltrate. Medications Administered Current Inpatient Medications Acetaminophen (Acetaminophen 325 Mg Tab) 650 mg PO Q4H PRN PRN Reason: Pain or Fever Stop: 04/01/20 03:14 Al Hydrox/Mg Hydrox/Simethicone (Aluminum/Magnesium Susp 30 Ml Udc) 15 ml PO Q4H PRN PRN Reason: Dyspepsia Stop: 04/01/20 03:14 Allopurinol (Allopurinol 100 Mg Tab) 100 mg PO DAILY GABRIEL Stop: 04/01/20 08:59 Last Admin: 03/02/20 08:35 Dose: 100 mg Documented by: Atorvastatin Calcium (Atorvastatin 20 Mg Tab) 20 mg PO HS GABRILE Stop: 04/01/20 20:59 Ondansetron HCl (Ondansetron Inj 2 Mg/Ml 2 Ml Vial) 4 mg IV Q6H PRN PRN Reason: Nausea Stop: 04/01/20 03:14 Polyethylene Glycol (Polyethylene (Miralax) 17 Gm Pack) 17 gm PO DAILY PRN PRN Reason: Constipation Stop: 04/01/20 03:14 Spironolactone (Spironolactone 12.5 Mg Tab) 12.5 mg PO DAILY GABRIEL Stop: 04/01/20 08:59 PG Care Time/CCT Total # of Minutes Spent Total Time Spent with Patient: Total time spent is greater than 50% in coordination of care (as documented) at patient's floor/unit and/or counseling patient: Coding Level of Care Code 88840 Initial Inpt Care Lvl 3 Diagnoses Acute on chronic systolic (congestive) heart failure I50.23 Ischemic cardiomyopathy I25.5 CAD (coronary artery disease) I25.10 S/P CABG x 3 Z95.1 S/P mitral valve replacement Z95.2 Mitral regurgitation I34.0 Tricuspid regurgitation I07.1 Nonsustained ventricular tachycardia I47.2 Dyslipidemia E78.5
[2020-03-02] MEDS ORDERED: FUROSEMIDE 40 MG in SYRINGE 0 ML IV SCH (14:15)
[2020-03-02] MEDS: METOPROLOL SUCC 25MG EXT REL TAB PO SCH (14:59)
[2020-03-02] MEDS: ASPIRIN 81 MG ECTAB PO SCH (14:59)
[2020-03-02] MEDS ORDERED: FUROSEMIDE 40 MG in SYRINGE 0 ML IV ONE (15:30)
--- NOTE | 2020-03-02 17:26 | Billing Data ---
Date of Service March 02, 2020 Coding Level of Care Code 79118 Subseq Hosp Care Lvl 3
[2020-03-02] MEDS: ATORVASTATIN 20 MG TAB PO SCH (20:54)
--- NOTE | 2020-03-02 23:37 | Electrocardiogram Report ---
Test Reason : Blood Pressure : / mmHG Vent. Rate : 084 BPM Atrial Rate : 084 BPM P-R Int : 192 ms QRS Dur : 128 ms QT Int : 414 ms P-R-T Axes : 060 -55 104 degrees QTc Int : 489 ms Sinus rhythm with frequent Premature ventricular complexes Left axis deviation Non-specific intra-ventricular conduction block Possible Inferior infarct T wave abnormality, consider lateral ischemia Abnormal ECG When compared with ECG of 05-JUN-2019 12:03, Premature ventricular complexes are now Present Premature atrial complexes are no longer Present T wave inversion no longer evident in Anterolateral leads Confirmed by Bro Heard [id number] on 03/02/2020 11:37:20 PM Referred By: William Doss Confirmed By:Bro Heard
--- NOTE | 2020-03-03 05:16 | Billing Data ---
Date of Service March 03, 2020 Coding Level of Care Code 59763 Initial Inpt Care Lvl 3
[2020-03-03 06:14] LABS: Basophils # (auto) 0.02 K/uL (0-0.2); Basophils % (auto) 0.2 %; Eosinophils # (auto) 0.15 K/uL (0-0.5); Eosinophils % (auto) 1.8 %; Hematocrit (blood only) 38.1 % (42-52); Hemoglobin 12.6 g/dL (14.0-18.0); Lymphocytes # (auto) 1.74 K/uL (1.2-3.4); Lymphocytes % (auto) 20.5 %; Mean Corpuscular Hemoglobin 31.6 pg (25-34); Mean Corpuscular Hgb Conc 33.1 g/dL (32-36); Mean Corpuscular Volume 95.5 fL (80-100); Mean Platelet Volume 12.3 fL (7.4-10.4); Monocytes # (auto) 0.98 K/uL (0.11-0.59); Monocytes % (auto) 11.5 %; Neutrophils # (auto) 5.61 K/uL (1.4-6.5); Platelet Count 194 K/uL (130-400); RDW Coefficient of Variation 15.5 % (11.5-14.5); RDW Standard Deviation 53.8 fL (36.4-46.3); Red Blood Count 3.99 M/uL (4.7-6.1)
[2020-03-03 06:39] LABS: BUN Creatinine Ratio 23.5 (10-20); Creatinine Clr Calc Pharmacy 30.2 ml/min; Est GFR (Non-African American) 31.1; Potassium 4.7 mmol/L (3.5-5.1)
--- NOTE | 2020-03-03 08:09 | Cardiology Progress Note ---
Date of Service March 03, 2020 Assessment & Plan (1) Acute on chronic systolic (congestive) heart failure: (2) Ischemic cardiomyopathy: (3) CAD (coronary artery disease): (4) S/P CABG x 3: (5) S/P mitral valve replacement: (6) Mitral regurgitation: (7) Tricuspid regurgitation: (8) Nonsustained ventricular tachycardia: (9) Dyslipidemia: ASSESSMENT/PLAN: 1. Acute on chronic systolic CHF: Presentation consistent with CHF exacerbation, likely due to increased sodium consumption in the setting of significantly reduced LV systolic function and valvular heart disease. BUN and creatinine have increased, suggesting azotemia however clinically he appears hypervolemic. This could represent poor perfusion due to his significantly reduced LV systolic function and also mitral and tricuspid regurgitation. Recommend dobutamine 2.5 micrograms/kilogram per minute for inotropic support. Hold losartan. Consider re-dosing Lasix later today. Would try to achieve negative fluid balance today. Strict I&Os recommended. His fluid balance was not complete but he is now collecting his urine. Daily weights (weight increased today?). We discussed importance of a low-sodium diet, less than 2000 mg daily. Recommended daily weights at home. Close follow-up with his primary pediatric cardiologist recommended. 2. Ischemic cardiomyopathy: Noncompliant with medical therapy per primary pediatric cardiologist. Had not been taking his prescribed metoprolol. ARB currently on hold due to worsening renal function and symptomatic hypotension. His primary pediatric cardiologist plans on initiating Entresto if tolerated and approved through the [place] system. 3. ICD: Biventricular ICD for primary prevention. Follows with [place] [facility] in [place]. 4. CAD s/p CABG x 3: No angina. Continue aspirin 81 mg daily. Continue statin therapy. Continue beta-wayne if tolerated. No ischemic evaluation necessary at this time as it appears as though his LV systolic function has remained stable for many years. 5. Mitral valve replacement with mitral regurgitation: [facility]. Stable findings. SBE prophylaxis for dental procedures. Follow with primary pediatric cardiologist. 6. Tricuspid regurgitation: Significant tricuspid regurgitation was also reported in outpatient [place] echo in November of 2019. Follow over time. 7. Nonsustained ventricular tachycardia: Continue beta-wayne as tolerated. He appears to be asymptomatic. ICD in place for more significant episodes. 8. Dyslipidemia: Continue statin therapy. 9. Disposition: Plan of care discussed with Dr. Contreras of the primary hospitalist service. I will be away from the hospital for the next [address] Mora will be available to assist in his cardiology care through the weekend. Please call with questions or concerns. On discharge, follow-up with [facility], his primary pediatric cardiologist (Tracy Jaeger). Admission and Anticipated Discharge Date Admission Date: March 02, 2020 Subjective He feels worse today than yesterday. He states that he feels worn out and lightheaded at times. He had more orthopnea overnight and was unable to sleep as well. His dyspnea with exertion is worse today than yesterday. He denies chest pain, palpitations, syncope, near-syncope, edema, or bleeding. He was alone in his hospital room. Review of systems: As above. Physical Exam Physical Exam: Gen.: No acute distress. Alert and oriented. HEENT: Anicteric sclera. Neck: JVD to the mandible sitting upright. Prominent V wave. Cardiac: PMI was nonpalpable. No ventricular heave. Regular with ectopy. Normal S1-S2. 2/6 holosystolic murmur. No rubs, or gallops. Pulmonary: Clear to auscultation bilaterally without wheezes, rales, or rhonchi. Abdomen: Soft, nontender, nondistended, with normoactive bowel sounds. No bruits noted. Extremities: 2+ radial pulses bilaterally. Trace bilateral lower extremity edema. No cyanosis. Psychiatric: Affect appears appropriate. Results & Data ([facility]) Vital Signs (Past 12 Hours) Vital Signs Temp Pulse Resp BP Pulse Ox 03/03/20 08:03 36.4 C L 60 19 93/67 L 92 03/03/20 07:48 62 93/67 L 03/03/20 04:13 36.4 C L 65 18 101/66 94 03/02/20 23:31 37.0 C 67 18 95/65 L 96 03/02/20 20:37 36.7 C 70 20 97/72 L 94 Intake & Output 03/01/20 03/02/20 03/03/20 03/04/20 06:59 06:59 06:59 06:59 Intake Total 815 / 815 Output Total 775 / 775 Balance 40 / 40 Weight 65.5 kg 66.6 kg Laboratory Results Laboratory Results - last 24 hr 03/02/20 03/02/20 03/02/20 06:18 Unknown Unknown WBC RBC Hgb Hct MCV MCH MCHC RDW Std Deviation RDW Coeff of Sommer Plt Count MPV Immature Gran % (Auto) Neut % (Auto) Lymph % (Auto) [place] % (Auto) Eos % (Auto) Baso % (Auto) Neut # (Auto) Lymph # (Auto) [place] # (Auto) Eos # (Auto) Baso # (Auto) Immature Gran # (Auto) Sodium Potassium Chloride Carbon Dioxide Anion Gap BUN Creatinine Est Cr Clr Drug Dosing Est GFR ( Amer) Est GFR (Non-Af Amer) BUN/Creatinine Ratio Glucose Calcium Troponin I 0.019 COVID-19 Eval Order Covid19 Done at [facility] COVID-19 PCR NEGATIVE 03/03/20 03/03/20 05:55 05:55 WBC 8.50 RBC 3.99 L Hgb 12.6 L Hct 38.1 L MCV 95.5 MCH 31.6 MCHC 33.1 RDW Std Deviation 53.8 H RDW Coeff of Sommer 15.5 H Plt Count 194 MPV 12.3 H Immature Gran % (Auto) 0.0 Neut % (Auto) 66.0 Lymph % (Auto) 20.5 [place] % (Auto) 11.5 Eos % (Auto) 1.8 Baso % (Auto) 0.2 Neut # (Auto) 5.61 Lymph # (Auto) 1.74 [place] # (Auto) 0.98 H Eos # (Auto) 0.15 Baso # (Auto) 0.02 Immature Gran # (Auto) 0.00 Sodium 138 Potassium 4.7 Chloride 106 Carbon Dioxide 25 Anion Gap 7.0 BUN 49 H Creatinine 2.07 H D Est Cr Clr Drug Dosing 30.2 Est GFR ( Amer) 36.0 Est GFR (Non-Af Amer) 31.1 BUN/Creatinine Ratio 23.5 H Glucose 93 Calcium 9.0 Troponin I COVID-19 Eval Order COVID-19 PCR Diagnostic Findings Telemetry personally reviewed: Sinus rhythm. Ventricular tachycardia up to 3 beats in duration. PVCs. Medications Administered Current Inpatient Medications Acetaminophen (Acetaminophen 325 Mg Tab) 650 mg PO Q4H PRN PRN Reason: Pain or Fever Stop: 04/01/20 03:14 Al Hydrox/Mg Hydrox/Simethicone (Aluminum/Magnesium Susp 30 Ml Udc) 15 ml PO Q4H PRN PRN Reason: Dyspepsia Stop: 04/01/20 03:14 Allopurinol (Allopurinol 100 Mg Tab) 100 mg PO DAILY [facility] Stop: 04/01/20 08:59 Last Admin: 03/02/20 08:35 Dose: 100 mg Documented by: Aspirin (Aspirin 81 Mg Ectab) 81 mg PO QAM [facility] Stop: 04/01/20 14:14 Last Admin: 03/02/20 14:59 Dose: 81 mg Documented by: Atorvastatin Calcium (Atorvastatin 20 Mg Tab) 20 mg PO HS [facility] Stop: 04/01/20 20:59 Last Admin: 03/02/20 20:54 Dose: 20 mg Documented by: Losartan Potassium (Losartan Potassium 25 Mg Tab) 12.5 mg PO QAM [facility] Stop: 04/02/20 08:59 Metoprolol Succinate (Metoprolol Succ 25mg Ext Rel Tab) 12.5 mg PO QAM [facility] Stop: 04/01/20 14:14 Last Admin: 03/02/20 14:59 Dose: 12.5 mg Documented by: Ondansetron HCl (Ondansetron Inj 2 Mg/Ml 2 Ml Vial) 4 mg IV Q6H PRN PRN Reason: Nausea Stop: 04/01/20 03:14 Polyethylene Glycol (Polyethylene (Miralax) 17 Gm Pack) 17 gm PO DAILY PRN PRN Reason: Constipation Stop: 04/01/20 03:14 Spironolactone (Spironolactone 12.5 Mg Tab) 12.5 mg PO DAILY [facility] Stop: 04/01/20 08:59 PG Care Time/CCT Total # of Minutes Spent Total Time Spent with Patient: Total time spent is greater than 50% in coordination of care (as documented) at patient's floor/unit and/or counseling patient: Coding Level of Care Code 58702 Subseq Hosp Care Lvl 3 Diagnoses Acute on chronic systolic (congestive) heart failure I50.23 Ischemic cardiomyopathy I25.5 CAD (coronary artery disease) I25.10 S/P CABG x 3 Z95.1 S/P mitral valve replacement Z95.2 Mitral regurgitation I34.0 Tricuspid regurgitation I07.1 Nonsustained ventricular tachycardia I47.2 Dyslipidemia E78.5
[2020-03-03] MEDS ORDERED: LOSARTAN POTASSIUM 25 MG TAB PO SCH (09:00)
[2020-03-03] MEDS: allopurinoL 100 MG TAB PO SCH (09:16)
[2020-03-03] MEDS ORDERED: STAT IV Infusion **Titration per Protocol STA (09:35)
[2020-03-03] MEDS: METOPROLOL SUCC 25MG EXT REL TAB PO SCH (10:01)
[2020-03-03] MEDS: FUROSEMIDE 40 MG in SYRINGE 0 ML IV SCH (10:29)
[2020-03-03] MEDS: ASPIRIN 81 MG ECTAB PO SCH (10:29)
--- NOTE | 2020-03-03 17:07 | Medical Student Progress Note ---
Date of Service March 03, 2020 Assessment & Plan (1) Acute on chronic systolic (congestive) heart failure: 1) Acute on chronic systolic CHF: Orthopnea, exertional dyspnea, increased salt intake last week, medication nonadherence -Dobutamine drip today to increase systolic fxn and increase diuresis. 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 2.02 from 1.62, potentially secondary to decreased renal perfusion in setting of heart failure -Dobutamine drip per cards recs as above -Patient with chronic renal failure he tells me unsure of baseline -Will need to obtain outside records -May be acute on chronic secondary to lack of perfusion -Trend w/BMP 4) Ischemic cardiomyopathy: Troponin neg x2 -Continue metoprolol succinate 12.5 mg daily -Hold losartan per cards -Possibility of Entresto in outpatient setting -ICD: Biventricular ICD for primary prevention. Follows [place] [facility] in [place]. 5) CAD s/p CABG x 3: No angina -Continue ASA 81 mg daily -Continue atorvastatin 20mg. -Resume beta-wayne as above 6) Dyslipidemia: Continue statin therapy as above DVT PPx: Lovenox F/E/N: Heart healthy diet, low sodium and fluid restriction Dispo: PCU for close monitoring ICU if MAP's drop <65 Admission and Anticipated Discharge Date Admission Date: March 02, 2020 Supervising Attestation I personally examined the patient and verified all julien points of history and exam, discussed case, and agree with decision making with Dorys Nieves MS4. OCONNELL worse this AM better since he started dobutamine - rerounded later dtr present updated to the best of my ability and to pt/dtr satisfaction - of note pt also noted then that he was feeling better as well vitals noted nad heent nc at mmm lungs show ongoing bibasilar rales (hard to tell as far as difference from yesterday - today was laying on L side so rales were mostly side of L lung field) no rhonchi no wheeze good effort skin no rashes no pallor or icterus neuro no focal deficits acute on chronic systolic CHF (HFrEF) - dietary sodium and/or med nonadherence as culprits superimposed on severe cardiomyopathy. dobutamine, diuresis. seems to be improving w dobutamine. ?could he tolerate entresto once euvolemic. otherwise as above Subjective States that he feels more short of breath today than yesterday. He had difficulty lying down to sleep and needed to position himself in a chair at times to rest. He stated that he became dizzy while ambulating the halls. He denies any falls, chest pain, or palpitations. Review of Systems Constitutional: no fever, no chills, no sweats and no fatigue Respiratory: + dyspnea and + dyspnea on exertion; no cough and no pain on inspiration Cardiovascular: + lightheadedness; no chest pain, no chest pain at rest, no palpitations and no edema Gastrointestinal: no nausea, no vomiting, no coffee ground emesis and no constipation Physical Exam Constitutional: Well appearing gentleman resting comfortably in bed in no acute distress. Eyes: PERRL, conjunctivae normal, anicteric sclerae Respiratory: Bilateral rales at bases, no rhonchi or wheezes. Increased work of breathing while lying flat. Cardiovascular: Regular rate and rhythm, 3/6 systolic murmur, no rubs or extra heart sounds. +JVD to base of ear, no peripheral edema. Gastrointestinal (Abdomen): Normoactive bowel sounds, nontender to palpation, no hepatosplenomegaly. Skin: no rashes, warm and dry Results & Data ([facility]) Vital Signs (Past 12 Hours) Vital Signs Temp Pulse Pulse Resp BP BP Pulse Ox 03/03/20 16:13 64 03/03/20 15:19 36.5 C 65 17 94/69 L 96 03/03/20 12:08 36.6 C 68 19 104/71 99 03/03/20 08:03 36.4 C L 60 19 93/67 L 92 03/03/20 08:00 61 03/03/20 07:48 62 93/67 L
--- NOTE | 2020-03-03 17:28 | Billing Data ---
Date of Service March 03, 2020 Coding Level of Care Code 34199 Subseq Hosp Care Lvl 3
[2020-03-03] MEDS: ATORVASTATIN 20 MG TAB PO SCH (20:01)
--- NOTE | 2020-03-04 08:33 | Hospitalist Progress Note ---
Date of Service March 04, 2020 Assessment & Plan (1) Acute on chronic systolic (congestive) heart failure: (2) Hypotension: Salas Dickson is a 74 year old man with a past medical history of [place] ischemic cardiomyopathy with EF of 25% who presents with acute on chronic exertional dyspnea acute. 1) Acute on Chronic exacerbation of systolic heart failure - Difficult to diurese in the setting of hypotension - lasix 40 IV AM - Cardiac support with Dobutamine drip to optimize luzmaria-starling contraction mechanics. - Trialed being off the dobutamine drip this morning, however was greatly impaired within 2 hours of it being discontinued. restarted in PM. - ECHO 03/02: severely dilated Lventricle with severely reduced sys fx. EF 15%. mild hypkinesis @ base to midanterolateral, basal anterior, basal inferolateral wall segments. global severe hypokinesis to akinesis. Severe biatrial dilation. bioprosthetic mitral valve with moderate regurg, severe tricuspid. 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 and acute on chronic CHF - lyme negative/equivocal - No elevated white count at present and does not appear septic - COVID negative 3) DANITZA on CKD - baseline 1.7, monitoring closely while diuresing - down to 1.86 today, appears to be fluctuating DVT PPx: lovenox F/E/N: Heart heatlhy diet, low sodium and fluid restriction Dispo: PCU for close monitoring ICU if MAP's drop <65 Code status: Full Code (3) Tricuspid regurgitation: (4) Mitral regurgitation: (5) Hypertension: (6) Dyslipidemia: (7) COPD (chronic obstructive pulmonary disease): (8) S/P mitral valve replacement: (9) Nonsustained ventricular tachycardia: (10) S/P CABG x 3: Admission and Anticipated Discharge Date Admission Date: March 02, 2020 Supervising Physician Co-Signing Physician Notes I personally examined the patient and verified all julien points of history and exam, discussed case, and agree with decision making with Dr Williamson was feeling better this AM - walked three laps, but within about 2hrs of dobutamine stopped he felt worse. vitals noted nad heent nc at mmm breathing unlabored no accessory muscles no conversational dyspnea good effort (but does appear even more fatigued at rest when seen off dobutamine) skin no rashes no pallor or icterus neuro no focal deficits acute on chronic systolic CHF (HFrEF) - dietary sodium and/or med nonadherence as culprits superimposed on severe cardiomyopathy. dobutamine (gave trial off - rapidly worsened), diuresis. hopefully will be able to tolerate entresto once euvolemic. otherwise as above Subjective doing well this morning. states he was able to walk around the nursing station about 3 times without difficulty compared to yesterday's half lap. otherwise no complaints. Review of Systems Constitutional: no fever, no chills, no body aches and no fatigue Respiratory: no cough and no dyspnea Cardiovascular: no chest pain, no dyspnea and no edema Gastrointestinal: no abdominal pain, no nausea, no vomiting, no constipation and no diarrhea/loose stools Physical Exam Physical Exam: Constitutional:in no apparent distress, sitting comfortably in bed. Cardiac: RRR, no murmurs, gallops or rubs. Normal S1, S2 Pulm: CTA BL, no wheezes, rhonchi, crackles or rubs, moving air well throughout both lungs Extremities: 2+ peripheral pulses, no edema Results & Data Results & Data ([facility]) Vital Signs (Past 12 Hours) Vital Signs Temp Pulse Resp BP BP Pulse Ox 03/04/20 04:41 36.5 C 65 16 89/50 L 94 03/03/20 23:07 36.7 C 67 18 97/66 L 93 03/03/20 20:57 36.5 C 64 20 97/66 L 97 Laboratory Results WBC 8.50 K/uL (4.8-10.8) 03/03/20 05:55 RBC 3.99 M/uL (4.7-6.1) L 03/03/20 05:55 Hgb 12.6 g/dL (14.0-18.0) L 03/03/20 05:55 Hct 38.1 % (42-52) L 03/03/20 05:55 MCV 95.5 fL (80-100) 03/03/20 05:55 MCH 31.6 pg (25-34) 03/03/20 05:55 MCHC 33.1 g/dL (32-36) 03/03/20 05:55 RDW Std Deviation 53.8 fL (36.4-46.3) H 03/03/20 05:55 RDW Coeff of Sommer 15.5 % (11.5-14.5) H 03/03/20 05:55 Plt Count 194 K/uL (130-400) 03/03/20 05:55 MPV 12.3 fL (7.4-10.4) H 03/03/20 05:55 Immature Gran % (Auto) 0.0 % 03/03/20 05:55 Neut % (Auto) 66.0 % 03/03/20 05:55 Lymph % (Auto) 20.5 % 03/03/20 05:55 [place] % (Auto) 11.5 % 03/03/20 05:55 Eos % (Auto) 1.8 % 03/03/20 05:55 Baso % (Auto) 0.2 % 03/03/20 05:55 Neut # (Auto) 5.61 K/uL (1.4-6.5) 03/03/20 05:55 Lymph # (Auto) 1.74 K/uL (1.2-3.4) 03/03/20 05:55 [place] # (Auto) 0.98 K/uL (0.11-0.59) H 03/03/20 05:55 Eos # (Auto) 0.15 K/uL (0-0.5) 03/03/20 05:55 Baso # (Auto) 0.02 K/uL (0-0.2) 03/03/20 05:55 Immature Gran # (Auto) 0.00 K/uL (0.00-0.02) 03/03/20 05:55 PT 13.0 Seconds (9.0-12.0) H 03/01/20 23:25 INR 1.2 (0.9-1.1) H 03/01/20 23:25 APTT 30.0 Seconds (21.0-31.0) 03/01/20 23:25 PTT Ratio 1.1 03/01/20 23:25 D-Dimer 1490 ug/L FEU (0-500) H* 03/01/20 23:25 Sodium 138 mmol/L (136-145) 03/04/20 08:27 Potassium 3.7 mmol/L (3.5-5.1) D 03/04/20 08:27 Chloride 105 mmol/L (98-107) 03/04/20 08:27 Carbon Dioxide 25 mmol/L (21-32) 03/04/20 08:27 Anion Gap 8.0 (3-11) 03/04/20 08:27 BUN 55 mg/dl (7-18) H 03/04/20 08:27 Creatinine 1.86 mg/dl (0.6-1.4) H 03/04/20 08:27 Est Cr Clr Drug Dosing 33.6 ml/min 03/04/20 08:27 Est GFR ( Amer) 41.0 03/04/20 08:27 Est GFR (Non-Af Amer) 35.4 03/04/20 08:27 BUN/Creatinine Ratio 29.4 (10-20) H 03/04/20 08:27 Glucose 152 mg/dl (70-99) H 03/04/20 08:27 Calcium 8.9 mg/dl (8.5-10.1) 03/04/20 08:27 Phosphorus 4.3 mg/dl (2.5-4.9) 03/02/20 06:18 Magnesium 2.3 mg/dl (1.8-2.4) 03/02/20 06:18 Total Bilirubin 1.1 mg/dl (0.2-1) H 03/02/20 06:18 AST 29 U/L (15-37) 03/02/20 06:18 ALT 42 U/L (12-78) 03/02/20 06:18 Alkaline Phosphatase 129 U/L (45-117) H 03/02/20 06:18 Troponin I 0.019 ng/ml (0-0.045) 03/02/20 06:18 NT-Pro-B Natriuret Pep 17900 pg/ml (0-900) H 03/01/20 23:23 Total Protein 6.3 gm/dl (6.4-8.2) L 03/02/20 06:18 Albumin 3.1 gm/dl (3.4-5.0) L 03/02/20 06:18 Globulin 3.2 gm/dl (2.5-4.0) 03/02/20 06:18 Albumin/Globulin Ratio 1.0 (0.9-2) 03/02/20 06:18 Urine Color Dark Yellow 03/02/20 01:37 Urine Appearance Clear (Clear) 03/02/20 01:37 Urine pH 5.5 (4.5-7.5) 03/02/20 01:37 Ur Specific [place] 1.018 (1.000-1.030) 03/02/20 01:37 Urine Protein 1+ (Negative) H 03/02/20 01:37 Urine Glucose (UA) Negative (Negative) 03/02/20 01:37 Urine Ketones Negative (Negative) 03/02/20 01:37 Urine Blood Negative (Negative) 03/02/20 01:37 Urine Nitrite Negative (Negative) 03/02/20 01:37 Urine Bilirubin Negative (Negative) 03/02/20 01:37 Urine Urobilinogen Negative (Negative) 03/02/20 01:37 Ur Leukocyte Esterase Negative (Negative) 03/02/20 01:37 Urine WBC (Auto) 1-5 /hpf (0-5) 03/02/20 01:37 Urine RBC (Auto) 0-4 /hpf (0-4) 03/02/20 01:37 U Hyaline Cast (Auto) 1-5 /lpf (0-5) 03/02/20 01:37 U Epithel Cells (Auto) 0-5 /lpf (0-5) 03/02/20 01:37 Urine Bacteria (Auto) Negative (Negative) 03/02/20 01:37 Lyme Disease IgG Ab Negative (Negative) 03/02/20 02:28 Lyme Disease IgM Ab Equivocal (Negative) A 03/02/20 02:28 COVID-19 Eval Order Covid19 Done at [facility] 03/02/20 Unknown COVID-19 PCR NEGATIVE (Negative) 03/02/20 Unknown Resident Activity Tracking Resident Involvement: Resident Care Provided Care Provided: Adult Hospital Medicine
[2020-03-04 09:06] LABS: BUN Creatinine Ratio 29.4 (10-20); Calcium 8.9 mg/dl (8.5-10.1); Creatinine Clr Calc Pharmacy 33.6 ml/min; Est GFR (Non-African American) 35.4; Potassium 3.7 mmol/L (3.5-5.1)
[2020-03-04] MEDS: METOPROLOL SUCC 25MG EXT REL TAB PO SCH (09:07)
[2020-03-04] MEDS: allopurinoL 100 MG TAB PO SCH (09:08)
[2020-03-04] MEDS: ASPIRIN 81 MG ECTAB PO SCH (09:08)
[2020-03-04] MEDS: FUROSEMIDE 40 MG in SYRINGE 0 ML IV SCH (09:08)
--- NOTE | 2020-03-04 11:31 | Cardiology Progress Note ---
Date of Service March 04, 2020 Assessment & Plan Admission and Anticipated Discharge Date Admission Date: March 02, 2020 Subjective He is feeling better this morning. He has been able to ambulate around the hallway 3 times. He notes when he came in he could not do this at all. His functional capacity has been declining in the last number of months. He did have lower extremity edema which is now resolved he had significant orthopnea before he came in this is improving. He is negative about a liter compared to yesterday even though his weight has not changed. He denies any abdominal distention. His appetite was poor before he came in it is now improving as his heart failure improves. Denies any palpitations or fluttering denies any orthostatic symptoms. Results & Data ([facility]) Vital Signs (Past 12 Hours) Vital Signs Temp Pulse Resp BP BP Pulse Ox 03/04/20 09:57 36.6 C 67 18 102/68 95 03/04/20 04:41 36.5 C 65 16 89/50 L 94 Assessment & Plan (1) Acute on chronic systolic (congestive) heart failure: (2) Ischemic cardiomyopathy: (3) CAD (coronary artery disease): (4) S/P CABG x 3: (5) S/P mitral valve replacement: (6) Mitral regurgitation: (7) Tricuspid regurgitation: (8) Nonsustained ventricular tachycardia: (9) Dyslipidemia: ASSESSMENT/PLAN: 1. Acute on chronic systolic CHF: I would continue with dobutamine for another day. He received 40 mg of IV Lasix this morning and has had a good diuresis. I would consider based on his blood pressure and how well he diuresis continues this morning in total to consider another dose of 40 mg of furosemide this afternoon. He is willing to stay another day in order to receive an additional day of dobutamine and improve his volume status. Long-term he is probably better off with Bumex over Lasix. In addition if his renal function continues to improve I would consider Entresto over an angiotensin receptor wayne alone given its reduction in heart failure and heart failure admission. Given the severity of his LV dysfunction he likely will live with a systolic blood pressure in the high 80s and low 90s and not have orthostatic symptoms. We will continue with his beta-blockers. 2. Ischemic cardiomyopathy: Noncompliant with medical therapy per primary tool specialist. Had not been taking his prescribed metoprolol. ARB currently on hold due to worsening renal function and symptomatic hypotension. His primary tool specialist plans on initiating Entresto if tolerated and approved through the [place] system. 3. ICD: Biventricular ICD for primary prevention. Follows with [facility] electrophys[facility] in [place]. 4. CAD s/p CABG x 3: No angina. Continue aspirin 81 mg daily. Continue statin therapy. Continue beta-wayne if tolerated. No ischemic evaluation necessary at this time as it appears as though his LV systolic function has remained stable for many years. 5. Mitral valve replacement with mitral regurgitation: [facility] Stable findings. SBE prophylaxis for dental procedures. Follow with primary tool specialist. 6. Tricuspid regurgitation: Significant tricuspid regurgitation was also reported in outpatient [place] echo in November of 2019. Follow over time. 7. Nonsustained ventricular tachycardia: Continue beta-wayne as tolerated. He appears to be asymptomatic. ICD in place for more significant episodes. 8. Dyslipidemia: Continue statin therapy. 9. Disposition: Plan of care discussed with Dr. Contreras of the primary hospitalist service. On discharge, follow-up with [place] cardiology, his primary tool specialist (Tracy Jaeger). Physical Exam Physical Exam: Gen.: No acute distress. Alert and oriented. HEENT: Anicteric sclera. Neck: JVD to the mandible remains elevated. Prominent V wave. Cardiac: PMI was nonpalpable. No ventricular heave. Regular with ectopy. Normal S1-S2. 2/6 holosystolic murmur. No rubs, or gallops. Pulmonary: Clear to auscultation bilaterally without wheezes, rales, or rhonchi. Abdomen: Soft, nontender, nondistended, with normoactive bowel sounds. No bruits noted. Extremities: Trace bilateral lower extremity edema. No cyanosis. Psychiatric: Affect appears appropriate.
[2020-03-04] MEDS ORDERED: STAT IV Infusion **Titration per Protocol STA (16:08)
--- NOTE | 2020-03-04 17:55 | Billing Data ---
Date of Service March 04, 2020 Coding Level of Care Code 64214 Subseq Hosp Care Lvl 3
[2020-03-04] MEDS ORDERED: Nursing to Pharmacy Communication SCH (19:15)
[2020-03-04] MEDS: ATORVASTATIN 20 MG TAB PO SCH (20:29)
[2020-03-05 07:17] LABS: BUN Creatinine Ratio 30.7 (10-20); Calcium 8.4 mg/dl (8.5-10.1); Creatinine Clr Calc Pharmacy 35.1 ml/min; Est GFR (African American) 43.2; Est GFR (Non-African American) 37.3; Potassium 3.9 mmol/L (3.5-5.1)
[2020-03-05] MEDS: allopurinoL 100 MG TAB PO SCH (08:00)
[2020-03-05] MEDS: ASPIRIN 81 MG ECTAB PO SCH (08:00)
[2020-03-05] MEDS: FUROSEMIDE 40 MG in SYRINGE 0 ML IV SCH (08:00)
[2020-03-05] MEDS: METOPROLOL SUCC 25MG EXT REL TAB PO SCH (08:01)
--- NOTE | 2020-03-05 10:31 | Cardiology Progress Note ---
Date of Service March 05, 2020 Assessment & Plan Admission and Anticipated Discharge Date Admission Date: March 02, 2020 Subjective He notes that when he was off dobutamine yesterday afternoon he felt worse. He was immediately more short of breath and fatigued with activity especially walking around he also had some mild lightheadedness. He was placed back on dobutamine last evening and since then has felt well. He notes his urinary output has picked up. The lightheadedness has resolved. He has no lower extremity edema nor abdominal distention. He did not sleep as well as he did the night before but he was not orthopneic. He denies any palpitations or fluttering. Nuys any presyncope syncope. Has any chest pain or chest pressure. Results & Data ([facility]) Vital Signs (Past 12 Hours) Vital Signs Temp Pulse Resp BP BP Pulse Ox 03/05/20 07:41 36.6 C 63 18 98/65 L 96 03/05/20 04:20 36.6 C 63 18 98/61 L 94 03/04/20 23:33 90/62 L 03/04/20 23:18 36.5 C 66 20 92 Assessment & Plan (1) Acute on chronic systolic (congestive) heart failure: (2) Ischemic cardiomyopathy: (3) CAD (coronary artery disease): (4) S/P CABG x 3: (5) S/P mitral valve replacement: (6) Mitral regurgitation: (7) Tricuspid regurgitation: (8) Nonsustained ventricular tachycardia: (9) Dyslipidemia: ASSESSMENT/PLAN: 1. Acute on chronic systolic CHF: In discussion with Salas the plan will be to stop his dobutamine today and this was discussed with nursing. He wants to see how he feels this afternoon off dobutamine watching for any lightheadedness dizziness or increasing shortness of breath like he had yesterday. If he feels well then he can be discharged home. If he does not I would continue his dobutamine. The problem is he cannot go home on dobutamine. If he wanted everything done he would need to have a consultation with advanced heart failure for consideration of an outpatient milrinone pump and even then consideration of an LVAD. He has not a transplant candidate. In addition if his renal function continues to improve I would consider Entresto over an angiotensin receptor wayne alone given its reduction in heart failure and heart failure admission. Given the severity of his LV dysfunction he likely will live with a systolic blood pressure in the high 80s and low 90s and not have orthostatic symptoms. We will continue with his beta- blockers. 2. Ischemic cardiomyopathy: Noncompliant with medical therapy per primary grocery clerk. Had not been taking his prescribed metoprolol. ARB currently on hold due to worsening renal function and symptomatic hypotension. His primary grocery clerk plans on initiating Entresto if tolerated and approved through the [facility] system. 3. ICD: Biventricular ICD for primary prevention. Follows with [facility] in [place]. 4. CAD s/p CABG x 3: No angina. Continue aspirin 81 mg daily. Continue statin therapy. Continue beta-wayne if tolerated. No ischemic evaluation necessary at this time as it appears as though his LV systolic function has remained stable for many years. 5. Mitral valve replacement with mitral regurgitation: [facility]. Stable findings. SBE prophylaxis for dental procedures. Follow with primary grocery clerk. 6. Tricuspid regurgitation: Significant tricuspid regurgitation was also reported in outpatient [facility] echo in November of 2019. Follow over time. 7. Nonsustained ventricular tachycardia: Continue beta-wayne as tolerated. He appears to be asymptomatic. ICD in place for more significant episodes. 8. Dyslipidemia: Continue statin therapy. 9. Disposition: Plan of care discussed with Dr. Contreras of the primary hospitalist service. On discharge, follow-up with [facility], his primary grocery clerk (Tracy Jaeger).
[2020-03-05] MEDS ORDERED: SACUBITRIL-VALSARTAN 24-26 MG TAB PO SCH (11:30)
--- NOTE | 2020-03-05 13:37 | Hospitalist Progress Note ---
Date of Service March 05, 2020 Assessment & Plan (1) Acute on chronic systolic (congestive) heart failure: (2) Hypotension: Salas Dickson is a 74 year old man with a past medical history of [place] ischemic cardiomyopathy with EF of 15% who presents with acute on chronic exertional dyspnea acute. 1) Acute on Chronic exacerbation of systolic heart failure: improving - responding well daily lasix diuresis. Held today after clear pulmonary exam and no dyspneic symptoms. - Appreciate Cardio recommendations regarding transition off dobutamine pump: - candidate for ambulatory milrinone continuous pump or LVAD placement. Not transplant candidate. - started Entresto BID today with hope of providing some EF support for patient going forward while between hospital and Milrinone/LVAD. - ECHO 03/02: severely dilated L ventricle with severely reduced sys fx. EF 15%. mild hypkinesis @ base to mid anterolateral, basal anterior, basal inferolateral wall segments. global severe hypokinesis to akinesis. Severe biatrial dilation. bioprosthetic mitral valve with moderate regurg, severe tricuspid. 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 3) DANITZA on CKD: resolved - baseline 1.7,1.76 today. holding diureetics today DVT PPx: lovenox F/E/N: Heart healthy diet, low sodium and fluid restriction Dispo: Home pending improvement off dobutamine drip Code status: Full Code (3) Tricuspid regurgitation: (4) Mitral regurgitation: (5) Hypertension: (6) Dyslipidemia: (7) COPD (chronic obstructive pulmonary disease): (8) S/P mitral valve replacement: (9) Nonsustained ventricular tachycardia: (10) S/P CABG x 3: Admission and Anticipated Discharge Date Admission Date: March 02, 2020 Subjective Feeling great with dobutamine drip going. Feels considerably more tired but tolerable sitting in bed after drip was turned off. Denies SOB, Chest pain, chest pressure, edema. Eager to get home. Review of Systems Constitutional: no fever, no chills, no body aches and no fatigue Respiratory: no cough and no dyspnea Cardiovascular: no chest pain, no dyspnea and no edema Gastrointestinal: no abdominal pain, no nausea, no vomiting, no constipation and no diarrhea/loose stools Physical Exam Physical Exam: Const: well appearing, thin elderly man Card: regular rate regular rhythm, blowing holosystolic murmur heard best at apex Pulm: CTA BL, no wheezes, rhonchi, crackles Ext: no peripheral edema, 2+ pulses Results & Data Results & Data ([facility]) Vital Signs (Past 12 Hours) Vital Signs Temp Pulse Resp BP BP Pulse Ox 03/05/20 11:39 34.6 C L 76 18 104/64 100 03/05/20 07:41 36.6 C 63 18 98/65 L 96 03/05/20 04:20 36.6 C 63 18 98/61 L 94 Laboratory Results WBC 8.50 K/uL (4.8-10.8) 03/03/20 05:55 RBC 3.99 M/uL (4.7-6.1) L 03/03/20 05:55 Hgb 12.6 g/dL (14.0-18.0) L 03/03/20 05:55 Hct 38.1 % (42-52) L 03/03/20 05:55 MCV 95.5 fL (80-100) 03/03/20 05:55 MCH 31.6 pg (25-34) 03/03/20 05:55 MCHC 33.1 g/dL (32-36) 03/03/20 05:55 RDW Std Deviation 53.8 fL (36.4-46.3) H 03/03/20 05:55 RDW Coeff of Sommer 15.5 % (11.5-14.5) H 03/03/20 05:55 Plt Count 194 K/uL (130-400) 03/03/20 05:55 MPV 12.3 fL (7.4-10.4) H 03/03/20 05:55 Immature Gran % (Auto) 0.0 % 03/03/20 05:55 Neut % (Auto) 66.0 % 03/03/20 05:55 Lymph % (Auto) 20.5 % 03/03/20 05:55 Thomas % (Auto) 11.5 % 03/03/20 05:55 Eos % (Auto) 1.8 % 03/03/20 05:55 Baso % (Auto) 0.2 % 03/03/20 05:55 Neut # (Auto) 5.61 K/uL (1.4-6.5) 03/03/20 05:55 Lymph # (Auto) 1.74 K/uL (1.2-3.4) 03/03/20 05:55 Thomas # (Auto) 0.98 K/uL (0.11-0.59) H 03/03/20 05:55 Eos # (Auto) 0.15 K/uL (0-0.5) 03/03/20 05:55 Baso # (Auto) 0.02 K/uL (0-0.2) 03/03/20 05:55 Immature Gran # (Auto) 0.00 K/uL (0.00-0.02) 03/03/20 05:55 PT 13.0 Seconds (9.0-12.0) H 03/01/20 23:25 INR 1.2 (0.9-1.1) H 03/01/20 23:25 APTT 30.0 Seconds (21.0-31.0) 03/01/20 23:25 PTT Ratio 1.1 03/01/20 23:25 D-Dimer 1490 ug/L FEU (0-500) H* 03/01/20 23:25 Sodium 139 mmol/L (136-145) 03/05/20 06:11 Potassium 3.9 mmol/L (3.5-5.1) 03/05/20 06:11 Chloride 105 mmol/L (98-107) 03/05/20 06:11 Carbon Dioxide 25 mmol/L (21-32) 03/05/20 06:11 Anion Gap 9.0 (3-11) 03/05/20 06:11 BUN 55 mg/dl (7-18) H 03/05/20 06:11 Creatinine 1.78 mg/dl (0.6-1.4) H 03/05/20 06:11 Est Cr Clr Drug Dosing 35.1 ml/min 03/05/20 06:11 Est GFR ( Amer) 43.2 03/05/20 06:11 Est GFR (Non-Af Amer) 37.3 03/05/20 06:11 BUN/Creatinine Ratio 30.7 (10-20) H 03/05/20 06:11 Glucose 82 mg/dl (70-99) 03/05/20 06:11 Calcium 8.4 mg/dl (8.5-10.1) L 03/05/20 06:11 Phosphorus 4.3 mg/dl (2.5-4.9) 03/02/20 06:18 Magnesium 2.3 mg/dl (1.8-2.4) 03/02/20 06:18 Total Bilirubin 1.1 mg/dl (0.2-1) H 03/02/20 06:18 AST 29 U/L (15-37) 03/02/20 06:18 ALT 42 U/L (12-78) 03/02/20 06:18 Alkaline Phosphatase 129 U/L (45-117) H 03/02/20 06:18 Troponin I 0.019 ng/ml (0-0.045) 03/02/20 06:18 NT-Pro-B Natriuret Pep 99879 pg/ml (0-900) H 03/01/20 23:23 Total Protein 6.3 gm/dl (6.4-8.2) L 03/02/20 06:18 Albumin 3.1 gm/dl (3.4-5.0) L 03/02/20 06:18 Globulin 3.2 gm/dl (2.5-4.0) 03/02/20 06:18 Albumin/Globulin Ratio 1.0 (0.9-2) 03/02/20 06:18 Urine Color Dark Yellow 03/02/20 01:37 Urine Appearance Clear (Clear) 03/02/20 01:37 Urine pH 5.5 (4.5-7.5) 03/02/20 01:37 Ur Specific [place] 1.018 (1.000-1.030) 03/02/20 01:37 Urine Protein 1+ (Negative) H 03/02/20 01:37 Urine Glucose (UA) Negative (Negative) 03/02/20 01:37 Urine Ketones Negative (Negative) 03/02/20 01:37 Urine Blood Negative (Negative) 03/02/20 01:37 Urine Nitrite Negative (Negative) 03/02/20 01:37 Urine Bilirubin Negative (Negative) 03/02/20 01:37 Urine Urobilinogen Negative (Negative) 03/02/20 01:37 Ur Leukocyte Esterase Negative (Negative) 03/02/20 01:37 Urine WBC (Auto) 1-5 /hpf (0-5) 03/02/20 01:37 Urine RBC (Auto) 0-4 /hpf (0-4) 03/02/20 01:37 U Hyaline Cast (Auto) 1-5 /lpf (0-5) 03/02/20 01:37 U Epithel Cells (Auto) 0-5 /lpf (0-5) 03/02/20 01:37 Urine Bacteria (Auto) Negative (Negative) 03/02/20 01:37 Lyme Disease IgG Ab Negative (Negative) 03/02/20 02:28 Lyme Disease IgM Ab Equivocal (Negative) A 03/02/20 02:28 COVID-19 Eval Order Covid19 Done at [facility] 03/02/20 Unknown COVID-19 PCR NEGATIVE (Negative) 03/02/20 Unknown Resident Activity Tracking Resident Involvement: Resident Care Provided Care Provided: Adult Hospital Medicine
--- NOTE | 2020-03-05 16:24 | Discharge Summary ---
Date of Service March 05, 2020 Admission HPI Per Admitting Provider Mr. Salas Dickson is a 74 year old man with a past medical history significant for a major heart attack in 2013 and resultant severe CHF, per him at one time his EF was 5% and now is improved to 25%. He has an ICD in place and has a history of aortic stenosis and valve replacement surgery as well. He is here today because he has noticed that he has been more short of breath than usual lately and is really struggling with taking care of his daughter's farm (where he lives normally) and animals while she is away on vacation. He feels he is only able to walk about 50-70 yards before becoming short of breath. He has not had any chest pain. SHortness of breath would improve if he stopped and rested but it has been getting progressively worse with less and less activity for past three days. ANd maybe slightly progressive before that too. He has also been weaker than he typically is, tried to staple something yesterday and was unable to. He has had an increase in salt content in his diet recently, eating hot dog, he has also been drinking more water. Has not noticed any leg swelling. 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 Also with a history of mitral valve repair. Heart attack in 2013 with resultant ischemic cardiomyopathy EF most recently 25 % per patient. Records from [facility] will need to be obtained. ON presentation to ED patient is doing well resting comfortably not feeling currently short of breath while lying in bed. No CHest pain. Vitals significant for hypotension 91/64, oxygenating well on room air. labwork significant for anemia, hemoglobin of 12.0 near where he was on last visit to ED, no white count, INR of 1.2, D Dimer of 1490, BUN of 42 creatinine of 1.71, [place] [address], albumin of 3.3.chest x ray showing no focal infiltrate but cardiomegaly and some pulmonary vascular prominence. bilateral venous dopplers negative. 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 Full Code Admission Exam Per Admitting Provider Constitutional: Well Appearing man lying in bed with notable sternotomy scar visible Eyes: Anicteric sclerae, EOMMI PERRLA bilateraly ENMT: NAD Neck: Very prominent jugular venous distension Respiratory: Lungs clear,to auscultation, no rales appreciated, slightly increased work of breathing Cardiac: Notable systolic ejection murmur best appreciated left sternal border, regular rate regular rhythm, no lower limb edema appreciated GI: Abdomen soft, nontender Principal Diagnosis acute on chronic systolic CHF (acute HFrEF) Discharge Exam Const: well appearing, thin elderly man Card: regular rate regular rhythm, blowing holosystolic murmur heard best at apex Pulm: CTA BL, no wheezes, rhonchi, crackles Ext: no peripheral edema, 2+ pulses Discharge Data Allergies Allergy/AdvReac Type Severity Reaction Status Date / Time No Known Allergies Allergy Verified 03/01/20 23:46 Consultations 03/02/20 01:17 ED Decision to Admit Stat 03/02/20 03:15 Consult Cardiology Routine 03/02/20 07:22 Consult Health Information Management Routine Ordered Studies 03/02/20 00:27 US venous doppler [facility] Urgent Hospital Course (1) Acute on chronic systolic (congestive) heart failure: (2) Hypotension: Salas Dickson is a 74 year old man with a past medical history of [place] ischemic cardiomyopathy with EF of 15% who presents with acute on chronic exertional dyspnea. Acute on Chronic exacerbation of systolic heart failure - Responded well to 40 mg IV lasix daily. - ECHO 03/02: severely dilated L ventricle with severely reduced sys fx. EF 15%. mild hypkinesis @ base to mid anterolateral, basal anterior, basal inferolateral wall segments. global severe hypokinesis to akinesis. Severe biatrial dilation. bioprosthetic mitral valve with moderate regurg, severe tricuspid. - Required dobutamine drip for cardiac support during diuresis. - did well off dobutamine drip with concurrent initiation of Entresto . - Cardiology recommendations regarding transition forward: - candidate for ambulatory milrinone continuous pump or LVAD placement. Not transplant candidate. All other medical conditions managed per home regimen. (3) Tricuspid regurgitation: (4) Mitral regurgitation: (5) Hypertension: (6) Dyslipidemia: (7) COPD (chronic obstructive pulmonary disease): (8) S/P mitral valve replacement: (9) Nonsustained ventricular tachycardia: (10) S/P CABG x 3: Total Time Total Time Spent Total Time Spent (In Minutes): <30 Discharge Plan Discharge Items Patient Disposition: Home - Self-Care Reason For Visit: SHORTNESS OF BREATH Discharge Diagnosis: CHF Exacerbation Activity: Resume your previous activity Exercise/Sports: Gradually increase as tolerated Non-emergency contact: Primary Care Provider and Records Management Associate Call non-emergency contact if: you have any medication questions and your symptoms worsen Follow-up/Referrals: William Doss MD [Primary Care Provider] - Diet: Heart Healthy and Low Sodium (2gm) Addtl Attending Provider Instructions: You were evaluated in the hospital for worsening shortness of breath that was found to be secondary to an exacerbation of your heart failure. You were treated with IV lasix which allowed you to remove the excess fluid from your lungs and made breathing and moving more tolerable. In additin to this, we repeated a cardiac echo which found your ejection fraction (how hard your heart can squeeze) to be only 15% (normal is 55-65%). Because of this, we put you temporarily on a dobutamine drip which provided more support for your heart function while we removed the fluid buildup. For your home regimen, we replaced the losartan you were previously on with a low dose of Entresto. Cardiology recommended that you discuss the option of a milrinone pump with your pass worker or an LVAD for cardiac support in the future if the Entresto does not provide enough support. You may also benefit from starting a small dose of metoprolol at 12.5 mg per day if your blood pressure is able to tolerate it; discuss this with your pass worker at your follow up appointment. New Medications: Entresto 24 1 tab twice a day Stopped Medications: Losartan If you develop sudden shortness of breath, chest pain, chest pressure, dizziness, worsening swelling of your limbs, seek medical attention immediately. Pending Studies at Discharge: No Stand-Alone Forms: [employer], Smoking Cessation Medications and DC Order Prescriptions: New Entresto 24-26 mg Tablet 1 tab PO BID 30 Days Qty: 60 RF: 0 Continued atorvastatin 20 mg Tablet 20 mg PO HS RF: 0 aspirin [Adult Low Dose Aspirin] 81 mg Tablet,Delayed Release (Dr/Ec) 81 mg PO DAILY RF: 0 allopurinol 100 mg Tablet 100 mg PO DAILY RF: 0 spironolactone 25 mg Tablet 12.5 mg PO DAILY RF: 0 furosemide 20 mg Tablet 40 mg PO QAM RF: 0 Discontinued losartan 25 mg Tablet 12.5 mg PO DAILY RF: 0 Discharge Orders: Discharge Order (Routine); Ordered 03/05/20 Ordered By: Tiff Jett/Other Patient Handouts: Blood Pressure Check Steps, ED About Arrhythmias Admission Data Admit Date/Time: 03/02/20 02:10 Attending Provider: Henry Contreras Admit Provider: Kaden Camilo Primary Care Provider: William Doss Other Providers: Lobito Griffith ; Bro Heard ; Tiff Williamson Other Interventions: Discharge Summary Assessment (RN) Last Done: 03/05/20 16:49 Supervising Physician Co-Signing Physician Notes I personally examined the patient and verified all julien points of history and exam, discussed case, and agree with decision making with Dr Williamson when seen this AM was on dobutamine feelng like he had been before. later revisited off dobutamine - felt a little worse than this AM but not nearly as bad as yesterday when dobutamine had been stopped - feels up to going home. tolerated first dose of entresto well. vitals noted nad heent nc at mmm breathing unlabored no accessory muscles no conversational dyspnea good effort good effort no accessory muscles skin no rashes no pallor or icterus neuro no focal deficits acute on chronic systolic CHF (HFrEF) - dietary sodium and/or med nonadherence as culprits superimposed on severe cardiomyopathy. stable for home - had about 48hrs dobutamine, diuresis. starting entresto. f/u primary cardiology later this week, BMP later this week as well. otherwise as above Resident Activity Tracking Resident Involvement: Resident Care Provided Care Provided: Adult Hospital Medicine
--- NOTE | 2020-03-05 17:34 | Billing Data ---
Date of Service March 05, 2020 Coding Level of Care Code D/C Day Management <30 mins
[2020-03-07 03:06] LABS: 18KDIGG Band NON-REACTIVE; 23KDIGG Band NON-REACTIVE; 23KDIGM Band REACTIVE; 28KDIGG Band NON-REACTIVE; 30KDIGG Band NON-REACTIVE; 39KDIGG Band NON-REACTIVE; 39KDIGM Band NON-REACTIVE; 41KDIGG Band REACTIVE; 41KDIGM Band NON-REACTIVE; 45KDIGG Band NON-REACTIVE; 58KDIGG Band REACTIVE; 66KDIGG Band NON-REACTIVE; 93KDIGG Band NON-REACTIVE; Lyme Antibodies, WB IgG NEGATIVE (NEGATIVE); Lyme Antibodies, WB IgM NEGATIVE (NEGATIVE)
== END 2020-03-05 18:00 | disposition home or self-care (01) | DRG 292 ==
LOC: ED 22:26 → SUATTDRO 03-02 02:10 → 2S 03-02 02:10

== ENCOUNTER 2020-03-11 10:05 | Inpatient (IN) ==
--- NOTE | 2020-03-11 10:38 | Emergency Department Note ---
Impression & Plan Breathlessness, Acute on chronic systolic (congestive) heart failure, Pain and swelling of right knee ED Provider Note Provider: Deng Dillon MD DATE OF SERVICE:03/11/2020 CHIEF COMPLAINT: Shortness of breath, right knee pain HISTORY OF PRESENT ILLNESS: Patient is a 74-year-old gentleman history extensively of cardiac issues including valve issues, AICD, CABG, CHF due to ischemic cardiomyopathy presenting here today complaining of worsening shortness of breath since recent mission and discharge on Friday. Patient denies any syncope or falls. Patient states he has had worsening breathing throughout the week and now can barely even change his shirt due to shortness of breath. Den ies fever or URI symptoms. Denies significant cough. Denies any chest pain or abdominal pain. Patient states he has had several episodes of small bowel movements last day but no luzmaria diarrhea no nausea or vomiting. States he had some swelling on his right knee that developed about a week ago just prior to discharge. Has been using Voltaren [id number]'s but still having some swelling here and pain around the right knee. Again denies any trauma or fall. States he is a history of this in the past. Denies significant weight gain but states it feels similar when he had fluid overload during his prior admission. Has been on Entresto and continues to use his home Lasix. Noted blood pressure to be quite low and states was normally in the 90s was not detectable this morning and [facility] here. REVIEW OF SYSTEMS: A total of 10 review of systems was obtained and negative except as stated above in the HPI. PAST MEDICAL HISTORY: As noted above MEDICATIONS: Reviewed home medications with the patient, skipped his daily dose of Entresto today SOCIAL HISTORY: Former smoker, lives at home with daughter PHYSICAL EXAM: GENERAL: alert and oriented in no acute distress on stretcher Head: normocephalic and atraumatic EYES: No injection, discharge or icterus. NECK: Trachea midline. Supple. ENT: Mucous membranes pink and moist. LUNGS: Airway patent. No retractions. Breath sounds clear with good air entry bilaterally. HEART: Regular rate and rhythm. No chest wall tenderness ABDOMEN: Soft and non-tender, without guarding or rebound. SKIN: Acyanotic, warm, dry, without rashes EXTREMITIES: Without significant deformity or swelling except around the area of the right knee which is somewhat swollen with some slight tenderness. No right lower calf tenderness. NEUROLOGICAL: No focal deficits. No aphasia. No facial droop or slurred speech. Normal strength and tone in the extremities. Sensation to gross touch normal. Ambulatory with cane becomes breathless very easily EK bpm sinus rhythm with first-degree AV block. No acute ST segment randell vation noted. T wave versions in lead I, aVL, and V5 and V6 noted. Left axis appreciated. Compared to previous available from March 01 of this year lateral T wave inversions are more prominent and now no longer having significant PVCs on the cardiogram. CONTINUOUS CARDIAC MONITORING: was ordered and showed a heart rate of 58 bpm in sinus bradycardia Patient's laboratory studies and imaging reviewed. Differential includes Infection, dehydration, metabolic abnormality, hypo/hyperglycemia, electrolyte disturbance, anemia, hypoxia, cardiac sources, intracerebral event, toxicologic, neurologic, as well as other pathologies. IMPRESSION/MEDICAL DECISION MAKING: Patient is complaining of shortness of breath and dyspnea on exertion. Concern for fluid overload given his prior history. Negative VQ scan within the past 10 days as well as venous Dopplers. Did have a popliteal cyst/Travis's cyst noted in the right may be causing his symptoms. No fever or infectious symptoms lower suspicion for an infected joint. X-ray without significant evidence of traumatic injury of the knee. Chest x-ray of the lungs without significant effusion or gross overload per radiology. proBNP is elevated actually more than previous. Kidney function still elevated. Troponin noted but not abnormal. No significant lecture abnormality. No signs of hepatic failure noted. Patient dyspneic even with changing shirt into the gown. Discussed with patient, daughter, and the line operator data processing systems consultant whose aware of his case. While likely is not hypoxic at rest does have hypotension likely related to his CHF and is a poor candidate for aggressive diuresis without further monitoring at this time. Cardiology recommend further monitored diuresis and possible need for beta agonist infusion to facilitate this. Patient was agreed with plan for further observation in the hospital. Hospitalist will be contacted DIAGNOSIS: Shortness of breath secondary to CHF exacerbation, right knee swelling DISPOSITION: Hospitalist will evaluate Patient was agreeable with this plan. Past Med/Surg History Medical History (Updated 03/11/20 @ 13:20 by Salas Alexis MD) Biventricular implantable cardioverter-defibrillator (ICD) in situ CAD (coronary artery disease) Chronic systolic CHF (congestive heart failure) COPD (chronic obstructive pulmonary disease) Dyslipidemia Hypertension Ischemic cardiomyopathy Mitral regurgitation Pacemaker infection Tricuspid regurgitation Surgical History (Updated 03/02/20 @ 14:02 by Bro Heard MD) S/P CABG x 3 S/P mitral valve replacement Family History Other No pertinent family history Social History Smoking Status: Former smoker Tobacco Type: Cigarettes Hx Alcohol Use: No Hx Substance Use: No Preferred Language: Chinese Communication Ability: Effective Supercharger Repair Supervisor Required: No Beliefs That Will Affect Care: None Current Living Situation: Family Feels Safe at Home: Yes Assistive Devices: Glasses Allergies Allergies Allergy/AdvReac Type Severity Reaction Status Date / Time No Known Allergies Allergy Verified 03/11/20 10:58 Home Meds Home Medications Medication Instructions Recorded Confirmed allopurinol 50 mg PO QAM 06/05/19 03/11/20 furosemide 40 mg PO QAM 06/05/19 03/11/20 spironolactone 12.5 mg PO QAM 06/05/19 03/11/20 atorvastatin 20 mg PO HS 03/01/20 03/11/20 aspirin [Adult Low Dose Aspirin] 81 mg PO QAM 03/02/20 03/11/20 diclofenac sodium [Voltaren] 2 g TOPICAL QID PRN 03/11/20 03/11/20 metoprolol tartrate 0 mg PO BID 03/11/20 03/11/20 Previous Rx's Medication Instructions Recorded sacubitril-valsartan [Entresto] 1 tab PO BID 30 Days #60 tab 03/05/20 Results & Data (ED) Vital Signs Vital Signs - 24 hr 03/11/20 10:14 03/11/20 11:00 03/11/20 11:03 Temperature 36.4 C L Temperature Source Oral Pulse Rate 75 Pulse Rate [Left Finger] Respiratory Rate 20 Respiratory Effort / Characteristics Non-Labored Spontaneous Respiratory Depth Normal Respiratory Pattern Regular Blood Pressure 103/74 Blood Pressure [Left Arm] Blood Pressure Mean 83 Blood Pressure Mean [Left Arm] Blood Pressure Position Sitting Pulse Oximetry 98 99 99 Oxygen Delivery Method Room Air Room Air Room Air Sepsis Recent Fever Within 48 Hours No Sepsis New/Unexplained Change in Mental Status N/A Sepsis Action Taken by Nursing No Action Required 03/11/20 11:27 03/11/20 12:30 03/11/20 13:33 Temperature Temperature Source Pulse Rate 56 L Pulse Rate [Left Finger] 59 L 58 L Respiratory Rate 22 29 H 18 Respiratory Effort / Characteristics Respiratory Depth Respiratory Pattern Blood Pressure 91/66 L Blood Pressure [Left Arm] 83/65 L 86/67 L Blood Pressure Mean Blood Pressure Mean [Left Arm] 71 73 Blood Pressure Position Pulse Oximetry 98 98 99 Oxygen Delivery Method Room Air Room Air Room Air Sepsis Recent Fever Within 48 Hours Sepsis New/Unexplained Change in Mental Status Sepsis Action Taken by Nursing Laboratory Data Result diagrams: 03/11/20 10:54 03/11/20 10:54 Lab Results 03/11/20 03/11/20 03/11/20 Range/Units 10:54 10:54 10:54 WBC 7.59 (4.8-10.8) K/uL RBC 4.12 L (4.7-6.1) M/uL Hgb 13.1 L (14.0-18.0) g/dL Hct 39.6 L (42-52) % MCV 96.1 (80-100) fL MCH 31.8 (25-34) pg MCHC 33.1 (32-36) g/dL RDW Std Deviation 53.8 H (36.4-46.3) fL RDW Coeff of Sommer 15.6 H (11.5-14.5) % Plt Count 275 (130-400) K/uL MPV 11.1 H (7.4-10.4) fL Immature Gran % (Auto) 0.1 % Neut % (Auto) 63.2 % Lymph % (Auto) 19.4 % [place] % (Auto) 14.8 % Eos % (Auto) 2.1 % Baso % (Auto) 0.4 % Neut # (Auto) 4.80 (1.4-6.5) K/uL Lymph # (Auto) 1.47 (1.2-3.4) K/uL [place] # (Auto) 1.12 H (0.11-0.59) K/uL Eos # (Auto) 0.16 (0-0.5) K/uL Baso # (Auto) 0.03 (0-0.2) K/uL Immature Gran # (Auto) 0.01 (0.00-0.02) K/uL PT 12.4 H (9.0-12.0) Seconds INR 1.2 H (0.9-1.1) APTT 29.9 (21.0-31.0) Seconds PTT Ratio 1.1 Sodium 139 (136-145) mmol/L Potassium 4.9 (3.5-5.1) mmol/L Chloride 108 H (98-107) mmol/L Carbon Dioxide 27 (21-32) mmol/L Anion Gap 4.0 (3-11) BUN 57 H (7-18) mg/dl Creatinine 1.97 H (0.6-1.4) mg/dl Est Cr Clr Drug Dosing 31.7 ml/min Est GFR ( Amer) 38.2 Est GFR (Non-Af Amer) 33.0 BUN/Creatinine Ratio 28.7 H (10-20) Glucose 111 H (70-99) mg/dl Calcium 9.0 (8.5-10.1) mg/dl Magnesium 2.9 H (1.8-2.4) mg/dl Total Bilirubin 0.9 (0.2-1) mg/dl AST 21 (15-37) U/L ALT 35 (12-78) U/L Alkaline Phosphatase 169 H (45-117) U/L Troponin I 0.040 (0-0.045) ng/ml NT-Pro-B Natriuret Pep 52527 H (0-900) pg/ml Total Protein 7.4 (6.4-8.2) gm/dl Albumin 3.4 (3.4-5.0) gm/dl Globulin 4.0 (2.5-4.0) gm/dl Albumin/Globulin Ratio 0.9 (0.9-2) Urine Color Urine Appearance (Clear) Urine pH (4.5-7.5) Ur Specific [place] (1.000-1.030) Urine Protein (Negative) Urine Glucose (UA) (Negative) Urine Ketones (Negative) Urine Blood (Negative) Urine Nitrite (Negative) Urine Bilirubin (Negative) Urine Urobilinogen (Negative) Ur Leukocyte Esterase (Negative) Urine WBC (Auto) (0-5) /hpf Urine RBC (Auto) (0-4) /hpf U Hyaline Cast (Auto) (0-5) /lpf U Epithel Cells (Auto) (0-5) /lpf Urine Bacteria (Auto) (Negative) 03/11/20 Range/Units 11:35 WBC (4.8-10.8) K/uL RBC (4.7-6.1) M/uL Hgb (14.0-18.0) g/dL Hct (42-52) % MCV (80-100) fL MCH (25-34) pg MCHC (32-36) g/dL RDW Std Deviation (36.4-46.3) fL RDW Coeff of Sommer (11.5-14.5) % Plt Count (130-400) K/uL MPV (7.4-10.4) fL Immature Gran % (Auto) % Neut % (Auto) % Lymph % (Auto) % [place] % (Auto) % Eos % (Auto) % Baso % (Auto) % Neut # (Auto) (1.4-6.5) K/uL Lymph # (Auto) (1.2-3.4) K/uL [place] # (Auto) (0.11-0.59) K/uL Eos # (Auto) (0-0.5) K/uL Baso # (Auto) (0-0.2) K/uL Immature Gran # (Auto) (0.00-0.02) K/uL PT (9.0-12.0) Seconds INR (0.9-1.1) APTT (21.0-31.0) Seconds PTT Ratio Sodium (136-145) mmol/L Potassium (3.5-5.1) mmol/L Chloride (98-107) mmol/L Carbon Dioxide (21-32) mmol/L Anion Gap (3-11) BUN (7-18) mg/dl Creatinine (0.6-1.4) mg/dl Est Cr Clr Drug Dosing ml/min Est GFR ( Amer) Est GFR (Non-Af Amer) BUN/Creatinine Ratio (10-20) Glucose (70-99) mg/dl Calcium (8.5-10.1) mg/dl Magnesium (1.8-2.4) mg/dl Total Bilirubin (0.2-1) mg/dl AST (15-37) U/L ALT (12-78) U/L Alkaline Phosphatase (45-117) U/L Troponin I (0-0.045) ng/ml NT-Pro-B Natriuret Pep (0-900) pg/ml Total Protein (6.4-8.2) gm/dl Albumin (3.4-5.0) gm/dl Globulin (2.5-4.0) gm/dl Albumin/Globulin Ratio (0.9-2) Urine Color Dark Yellow Urine Appearance Clear (Clear) Urine pH 5.0 (4.5-7.5) Ur Specific [place] 1.019 (1.000-1.030) Urine Protein 1+ H (Negative) Urine Glucose (UA) Negative (Negative) Urine Ketones Negative (Negative) Urine Blood Negative (Negative) Urine Nitrite Negative (Negative) Urine Bilirubin Negative (Negative) Urine Urobilinogen Negative (Negative) Ur Leukocyte Esterase Negative (Negative) Urine WBC (Auto) 1-5 (0-5) /hpf Urine RBC (Auto) 0-4 (0-4) /hpf U Hyaline Cast (Auto) 1-5 (0-5) /lpf U Epithel Cells (Auto) 10-20 H (0-5) /lpf Urine Bacteria (Auto) Negative (Negative) Discharge Plan Visit Data Chief Complaint: Shortness of Breath/Dyspnea Stated Complaint: SOB ED Provider: Deng Dillon Discharge Problem: Breathlessness, Acute on chronic systolic (congestive) heart failure, Pain and swelling of right knee Patient Disposition: Being Evaluated by Hospitalist Discharge Instructions Interventions: ED Discharge Assessment Last Done: 03/11/20 13:33 Forms Stand Alone Forms: My [facility] Prescriptions Prescriptions: No Action atorvastatin 20 mg Tablet 20 mg PO HS RF: 0 aspirin [Adult Low Dose Aspirin] 81 mg Tablet,Delayed Release (Dr/Ec) 81 mg PO QAM RF: 0 Entresto 24-26 mg Tablet 1 tab PO BID 30 Days Qty: 60 RF: 0 metoprolol tartrate 25 mg Tablet 0 mg PO BID RF: 0 diclofenac sodium [Voltaren] 1 % Gel 2 g TOPICAL QID PRN (Reason: Pain) RF: 0 allopurinol 100 mg Tablet 50 mg PO QAM RF: 0 spironolactone 25 mg Tablet 12.5 mg PO QAM RF: 0 furosemide 20 mg Tablet 40 mg PO QAM RF: 0 Referrals Referrals: William Doss MD [Primary Care Provider] -
[2020-03-11 11:03] LABS: Basophils # (auto) 0.03 K/uL (0-0.2); Basophils % (auto) 0.4 %; Eosinophils # (auto) 0.16 K/uL (0-0.5); Eosinophils % (auto) 2.1 %; Hematocrit (blood only) 39.6 % (42-52); Hemoglobin 13.1 g/dL (14.0-18.0); Immature Granulocytes # (auto) 0.01 K/uL (0.00-0.02); Immature Granulocytes % (auto) 0.1 %; Lymphocytes # (auto) 1.47 K/uL (1.2-3.4); Lymphocytes % (auto) 19.4 %; Mean Corpuscular Hemoglobin 31.8 pg (25-34); Mean Corpuscular Hgb Conc 33.1 g/dL (32-36); Mean Corpuscular Volume 96.1 fL (80-100); Mean Platelet Volume 11.1 fL (7.4-10.4); Monocytes # (auto) 1.12 K/uL (0.11-0.59); Monocytes % (auto) 14.8 %; Neutrophils % (auto) 63.2 %; Platelet Count 275 K/uL (130-400); RDW Coefficient of Variation 15.6 % (11.5-14.5); RDW Standard Deviation 53.8 fL (36.4-46.3); Red Blood Count 4.12 M/uL (4.7-6.1); White Blood Count 7.59 K/uL (4.8-10.8)
--- NOTE | 2020-03-11 11:13 | XRay Report ---
XR chest 1V portable CLINICAL HISTORY: Dyspnea COMPARISON STUDY: Chest radiograph March 01, 2020. FINDINGS: Note is made of prosthetic cardiac valve, median sternotomy wires, mediastinal surgical cli ps and a right subclavian pacer/AICD. Moderate cardiomegaly is unchanged. There is no evidence for pu lmonary edema. There is no pneumothorax or pleural effusion. No consolidation is present. The appeara nce of the chest is unchanged. 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 IMPRESSION: No acute findings. Cardiomegaly. ACT 112: Negative or not required by law. Electronically signed by: Christiano Crabtree M.D. 03/11/2020 11:12 AM
[2020-03-11 11:15] LABS: INR 1.2 (0.9-1.1); Partial Thromboplastin Ratio 1.1; Partial Thromboplastin Time 29.9 Seconds (21.0-31.0); Prothrombin Time 12.4 Seconds (9.0-12.0)
--- NOTE | 2020-03-11 11:16 | XRay Report ---
XR knee RT 3V CLINICAL HISTORY: Right knee swelling. COMPARISON: None FINDINGS: Alignment of the right knee is anatomic. There is no acute fracture. Joint spaces are pres erved. There is mild osteophytosis within the right knee. Pre and infrapatellar soft tissue swelling is noted. There is a small to moderate joint effusion. IMPRESSION: 1. No acute fracture. 2. Small to moderate right knee joint effusion. Pre and infrapatellar soft tissue swelling. 3. Preserved joint spaces with mild right knee osteophytosis. ACT 112: Negative or not required by law. Electronically signed by: Christiano Crabtree M.D. 03/11/2020 11:14 AM
[2020-03-11 11:21] LABS: Albumin Level 3.4 gm/dl (3.4-5.0); BUN Creatinine Ratio 28.7 (10-20); Creatinine Clr Calc Pharmacy 31.7 ml/min; Est GFR (African American) 38.2; Magnesium 2.9 mg/dl (1.8-2.4); Potassium 4.9 mmol/L (3.5-5.1)
[2020-03-11 11:27] LABS: Albumin Globulin Ratio 0.9 (0.9-2); Bilirubin,Total 0.9 mg/dl (0.2-1); Total Protein 7.4 gm/dl (6.4-8.2); Troponin I 0.04 ng/ml (0-0.045)
[2020-03-11 11:52] LABS: Appearance Urine Clear (Clear); Bacteria Urine Automated Negative (Negative); Bilirubin Urine Negative (Negative); Blood Urine Negative (Negative); Color Urine Dark Yellow; Glucose Urine UA Negative (Negative); Ketones Urine Negative (Negative); Leukocyte Esterase Urine Negative (Negative); Nitrite Urine Negative (Negative); Protein Urine 1+ (Negative); RBC Urine Automated 0-4 /hpf (0-4); Specific Gravity Urine 1.019 (1.000-1.030); Urobilinogen Urine Negative (Negative)
--- NOTE | 2020-03-11 13:21 | History & Physical Report ---
Date of Service March 11, 2020 Assessment & Plan (1) Ischemic cardiomyopathy: Patient admitted for intravenous dobutamine recommendations cardiology is to hold diuretics at this time as his volume status is fairly euvolemic try to initiate metoprolol therapy if blood pressure allows. Hold Entresto at this time hold spironolactone (2) Hypertension: Patient typically prehospital from his previous hospital stay was on losartan and metoprolol but compliance was an issue. He was discharged on Entresto and metoprolol but due to low blood pressure has discontinued these medications. We are attempting to reinstitute metoprolol only for suppression of ventricular tachycardia which he had evidence of during his last stay (3) Biventricular implantable cardioverter-defibrillator (ICD) in situ: Patient is ejection fraction is around 15% his defibrillator was placed only a few months ago there was no discussion of chronic anticoagulation according to the patient (4) COPD (chronic obstructive pulmonary disease): She has COPD listed in his chart he is typically not on any inhaled medications and currently does not have any respiratory symptoms (5) DVT prophylaxis: Patient will be on Lovenox therapy for DVT prevention History of Present Illness Primary Care Provider: Lucho Doss MD 74-year-old male recently discharged from our facility approximately less than 1 week ago. He was admitted with ischemic cardiomyopathy and acute systolic heart failure requiring dobutamine infusion. He improved with dobutamine and was discharged on Entresto however he had persistent issues with hypotension which required him to stop both his beta-wayne and Entresto. He is markedly symptomatic becoming extremely fatigued and dyspneic with only a few steps. He presented to the emergency department on the recommendation of his physicians was seen in the emergency department by Dr. Heard cardiology. Patient is felt to have fairly significant ischemic cardiomyopathy with dyspnea. He is being admitted for intravenous dobutamine infusion with considerations of next steps with possible referral for aggressive interventions Allergies Allergy/AdvReac Type Severity Reaction Status Date / Time No Known Allergies Allergy Verified 03/11/20 10:58 Home Medications Home Medications Medication Instructions Recorded Confirmed Type allopurinol 50 mg PO QAM 06/05/19 03/11/20 History furosemide 40 mg PO QAM 06/05/19 03/11/20 History spironolactone 12.5 mg PO QAM 06/05/19 03/11/20 History atorvastatin 20 mg PO HS 03/01/20 03/11/20 History aspirin [Adult Low Dose Aspirin] 81 mg PO QAM 03/02/20 03/11/20 History sacubitril-valsartan [Entresto] 1 tab PO BID 30 Days #60 tab 03/05/20 03/11/20 Rx diclofenac sodium [Voltaren] 2 g TOPICAL QID PRN 03/11/20 03/11/20 History metoprolol tartrate 0 mg PO BID 03/11/20 03/11/20 History Past Med/Surg History Medical History (Updated 03/11/20 @ 13:20 by Salas Alexis MD) Biventricular implantable cardioverter-defibrillator (ICD) in situ CAD (coronary artery disease) Chronic systolic CHF (congestive heart failure) COPD (chronic obstructive pulmonary disease) Dyslipidemia Hypertension Ischemic cardiomyopathy Mitral regurgitation Pacemaker infection Tricuspid regurgitation Surgical History (Updated 03/02/20 @ 14:02 by Bro Heard MD) S/P CABG x 3 S/P mitral valve replacement Family History Other No pertinent family history Social History Smoking Status: Former smoker Tobacco Type: Cigarettes Hx Alcohol Use: No Hx Substance Use: No Preferred Language: French Communication Ability: Effective Electrical/Instrument Technician Required: No Beliefs That Will Affect Care: None Current Living Situation: Family Feels Safe at Home: Yes Assistive Devices: Glasses Review of Systems Review of Systems: Marked distress and significant fatigue no headache, blurry or double vision no speech or swallowing issues no chest pain, pressure or palpitations Severe dyspnea on exertion no abdominal pain, nausea or vomiting, diarrhea or constipation no dysuria, hematuria or frequency Right knee swelling with minor pain no back pain, CVA tenderness or radicular pain no bruising, bleeding or rashes no focal signs of weakness or numbness or altered sensation no complaints of anxiety or depression. Physical Exam Physical Exam: The patient appeared well nourished and normally developed. Vital signs as documented. Head exam is normocephalic atraumatic no scleral icterus Neck is with JVD, thyromegaly, or carotid bruits. Lungs bibasilar rales Cardiac exam, Rhythm is regular stock ejection murmur Abdominal exam reveals normal bowel sounds, soft non tender, no masses Extremities are nonedematous and right knee has a effusion that is only mildly tender Neurologic exam is alert and oriented, no focal loss of strength or sensation Skin is without bruises or rashes Psychologically is without concerns for anxiety or depression. Results & Data Results & Data ([facility]) Vital Signs (Past 12 Hours) Vital Signs Temp Pulse Pulse Resp BP BP Pulse Ox 03/11/20 12:30 58 L 29 H 86/67 L 98 03/11/20 11:27 59 L 22 83/65 L 98 03/11/20 11:03 99 03/11/20 11:00 99 03/11/20 10:14 97.5 F L 75 20 103/74 98 chest x-ray 03/11/2020 shows no acute findings Knee x-ray 03/11/2020, right, no acute fracture small to moderate right knee joint effusion. Intrapatellar soft tissue swelling preserved joint space with mild osteophytosis EKG shows sinus bradycardia first-degree block Code Status & VTE Plan VTE Prophylaxis Plan VTE Prophylaxis will be ordered: Yes PG Care Time/CCT Total # of Minutes Spent Total Time Spent with Patient: Total time spent is greater than 50% in coordination of care (as documented) at patient's floor/unit and/or counseling patient: Coding Level of Care Code 48983 Initial Inpt Care Lvl 3 Diagnoses Ischemic cardiomyopathy I25.5 Hypertension I10 Biventricular implantable cardioverter-defibrillator (ICD) in situ Z95.810 COPD (chronic obstructive pulmonary disease) J44.9 DVT prophylaxis Z29.9
[2020-03-11] MEDS ORDERED: POLYETHYLENE (MIRALAX) 17 GM PACK PO PRN (14:41)
[2020-03-11] MEDS ORDERED: STAT IV Infusion **Titration per Protocol STA (14:41)
[2020-03-11] MEDS ORDERED: ONDANSETRON INJ 2 MG/ML 2 ML VIAL IV PRN (14:41)
[2020-03-11] MEDS ORDERED: ACETAMINOPHEN 325 MG TAB PO PRN (14:41)
[2020-03-11] MEDS ORDERED: ALUMINUM/MAGNESIUM SUSP 30 ML UDC PO PRN (14:41)
--- NOTE | 2020-03-11 16:06 | Cardiology Consultation ---
Date of Consultation March 11, 2020 Assessment & Plan (1) Chronic systolic CHF (congestive heart failure): (2) Ischemic cardiomyopathy: (3) CAD (coronary artery disease): (4) S/P CABG x 3: (5) Hypotension: (6) S/P mitral valve replacement: (7) Mitral regurgitation: (8) Tricuspid regurgitation: (9) Nonsustained ventricular tachycardia: ASSESSMENT/PLAN: 1. Chronic systolic CHF: Class 3/4 symptoms however he does not appear to be significantly hypervolemic currently. Concerning that his dyspnea may be related more so to poor pump function. Recommend dobutamine drip. Can start 2.5 mcg/kg/min, which appeared to work well for him last hospitalization. We discussed long-term options if he is unable to tolerate oral medications as an outpatient such as inotropic infusion as an outpatient or evaluation at [facility] to consider left ventricular assist device. He states that his brother has home Milrinone so he is familiar with such options. He plans on discussing further with his daughter while thinking it over. 2. Ischemic cardiomyopathy: Has had severely reduced LV systolic function for many years. Hold Entresto due to hypotension. Can keep low-dose beta-wayne if tolerated. Would recommend metoprolol succinate on discharge if tolerated. ICD in place for primary prevention. Continue spironolactone. 3. CAD s/p CABG x 3: No angina. Continue aspirin 81 mg daily. Continue statin therapy. Continue beta-wayne as tolerated. 4. Mitral valve replacement with mitral regurgitation: Chronic issue. SBE prophylaxis for dental procedures. 5. Tricuspid regurgitation: Noted to be significant earlier this month but also in outpatient November 2019 echo. 6. Nonsustained ventricular tachycardia: Was noted to have ventricular tachycardia during his February 2020 hospitalization. Continue beta-wayne if tolerated. 7. Hypotension: Dobutamine drip recommended as above. Holding Entresto. 8. Disposition: Significantly ill individual with overall poor prognosis. Plan of care discussed with admitting physician, Dr. Alexis the. Cardiology will continue to follow. [facility] Highly complex medical issues. Thank you for allowing me to participate in the care of your patient. Please call for any other questions or concerns. Sincerely, Reno Heard M.D. History of Present Illness Reason for Consultation: Ischemic cardiomyopathy and chronic systolic CHF Requesting Physician: Wilma Donaldson and Dr. Alexis Attending Physician: Salas Alexis MD History of Present Illness Mr. Dickson is a pleasant 74-year-old gentleman with history significant for ischemic cardiomyopathy s/p biventricular ICD, systolic CHF, multivessel CAD s/p CABG x 3, mitral valve replacement, mitral and tricuspid regurgitation, hypertension, dyslipidemia, and COPD. 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 In 2006, while in [place], [place], he underwent cardiac catheterization, mitral valve replacement and CABG x3. He also went ICD for primary prevention. In regards to his CABG, based on chest x-ray imaging, GARCIA was utilized but other details are not known. He reports having an LV ejection fraction of 5% at the time of surgery. Echo at the CT November 2019 reported 15-20%, moderate MR, and moderate to severe TR with [id number] pulmonary hypertension. He had a generator change in [address] but developed an infected pocket and it was removed 3-4 months later. He went sometime without reimplantation until November of 2019 in the [facility] according to his report. This most recent device is a biventricular device. He has had the following studies/procedures: 1. Echo 03/02/2020: Severely dilated LV with severely reduced systolic function. EF 15%. Mild hypokinesis involving base to mid anterolateral, basal anterior, and basal inferolateral wall segments. Otherwise, global severe hypokinesis to akinesis. Mildly dilated RV with normal systolic function. Severe left atrial dilation. Moderate right atrial dilation. Bioprosthetic mitral valve with at least moderate MR. Severe TR. Tricuspid valve is not fully coapt during systole. RVSP 36. Pleural effusion. He was discharged on 03/05/2020 from [facility] when he was admitted for heart ramon lure. He received dobutamine 2.5 mcg/kg/min during the latter part of the hospital stay, which significantly improved his symptoms. The following day from discharge, he [facility] Throughout the week however he noted that his systolic blood pressure became more hypotensive, as low as 77 mmHg. He has been feeling lightheaded intermittently. His last dose of Entresto was yesterday morning after he was instructed to stop the medication from his primary continuous mining machine operator. Approximately 3 days ago, he noted increased shortness of breath which has progressively worsened since that time. He has not noted any significant edema other than a swollen right knee which he reports being present at the time of discharge last week. He recalls being told that he had a Travis's cyst. He is now only able to walk 20-30 feet due to dyspnea. He reports orthopnea and was unable to sleep much the last couple of days. He has had intermittent nausea and has noted pulse a shins in his neck. He denies chest discomfort, syncope, near-syncope, palpitations, or bleeding. He continues to take Lasix 40 mg daily at home as well as spironolactone, metoprolol succinate, and his other medications. He states that he has maintain a low-sodium diet. He does not weigh himself regularly. Review of systems: As above. Review of systems otherwise negative /unremarkable. Family history: Brother with CAD. Social history: Quit smoking in approximately 2017 after smoking up to a pack per day for many years. Rare alcohol. No drugs. x2. 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 He has 4 children. He travels often. 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 His daughter, Mary Ann, was present at his bedside in the emergency department during today's visit. Allergies Allergy/AdvReac Type Severity Reaction Status Date / Time No Known Allergies Allergy Verified 03/11/20 10:58 Home Medications Home Medications Medication Instructions Recorded Confirmed Type allopurinol 50 mg PO QAM 06/05/19 03/11/20 History furosemide 40 mg PO QAM 06/05/19 03/11/20 History spironolactone 12.5 mg PO QAM 06/05/19 03/11/20 History atorvastatin 20 mg PO HS 03/01/20 03/11/20 History aspirin [Adult Low Dose Aspirin] 81 mg PO QAM 03/02/20 03/11/20 History sacubitril-valsartan [Entresto] 1 tab PO BID 30 Days #60 tab 03/05/20 03/11/20 R x diclofenac sodium [Voltaren] 2 g TOPICAL QID PRN 03/11/20 03/11/20 History metoprolol tartrate 0 mg PO BID 03/11/20 03/11/20 History Patient History Medical History Biventricular implantable cardioverter-defibrillator (ICD) in situ CAD (coronary artery disease) Chronic systolic CHF (congestive heart failure) COPD (chronic obstructive pulmonary disease) Dyslipidemia Hypertension Ischemic cardiomyopathy Mitral regurgitation Pacemaker infection Tricuspid regurgitation Surgical History S/P CABG x 3 S/P mitral valve replacement Family History Other No pertinent family history Social History Smoking Status: Former smoker Tobacco Type: Cigarettes Hx Alcohol Use: No Hx Substance Use: No Preferred Language: Urdu Communication Ability: Effective Die Maintenance Required: No Beliefs That Will Affect Care: None Current Living Situation: Family Current Living Situation Comment: with daughter Feels Safe at Home: Yes Assistive Devices: Glasses Physical Exam Physical Exam: Gen.: No acute distress. Alert and oriented. HEENT: Anicteric sclera. Neck: No appreciable JVD. No hepatic jugular reflux. No bruits. Normal carotid upstrokes bilaterally. Cardiac: PMI was nondisplaced. No ventricular heave. Regular. Normal S1-S2. 3/6 harsh holosystolic murmur best heard at the apex, radiating to the left axilla. No rubs, or gallops. Pulmonary: Clear to auscultation bilaterally without wheezes, rales, or rhonchi. Abdomen: Soft, nontender, nondistended, with normoactive bowel sounds. No bruits noted. Extremities: 2+ radial pulses bilaterally. 2+ posterior tibialis pulses bilaterally. Trace bilateral lower extremity edema. No cyanosis. Psychiatric: Affect appears appropriate. Results & Data ([facility]) Vital Signs (Past 12 Hours) Vital Signs Temp Pulse Pulse Resp BP BP Pulse Ox 03/11/20 14:07 36.5 C 57 L 18 87/65 L 100 03/11/20 13:33 56 L 18 91/66 L 99 03/11/20 12:30 58 L 29 H 86/67 L 98 03/11/20 11:27 59 L 22 83/65 L 98 03/11/20 11:03 99 03/11/20 11:00 99 03/11/20 10:14 36.4 C L 75 20 103/74 98 Laboratory Results Laboratory Results - last 24 hr 03/11/20 03/11/20 03/11/20 10:54 10:54 10:54 WBC 7.59 RBC 4.12 L Hgb 13.1 L Hct 39.6 L MCV 96.1 MCH 31.8 MCHC 33.1 RDW Std Deviation 53.8 H RDW Coeff of Sommer 15.6 H Plt Count 275 MPV 11.1 H Immature Gran % (Auto) 0.1 Neut % (Auto) 63.2 Lymph % (Auto) 19.4 Ellsworth % (Auto) 14.8 Eos % (Auto) 2.1 Baso % (Auto) 0.4 Neut # (Auto) 4.80 Lymph # (Auto) 1.47 [place] # (Auto) 1.12 H Eos # (Auto) 0.16 Baso # (Auto) 0.03 Immature Gran # (Auto) 0.01 PT 12.4 H INR 1.2 H APTT 29.9 PTT Ratio 1.1 Sodium 139 Potassium 4.9 Chloride 108 H Carbon Dioxide 27 Anion Gap 4.0 BUN 57 H Creatinine 1.97 H Est Cr Clr Drug Dosing 31.7 Est GFR ( Amer) 38.2 Est GFR (Non-Af Amer) 33.0 BUN/Creatinine Ratio 28.7 H Glucose 111 H Calcium 9.0 Magnesium 2.9 H Total Bilirubin 0.9 AST 21 ALT 35 Alkaline Phosphatase 169 H Troponin I 0.040 NT-Pro-B Natriuret Pep 15751 H Total Protein 7.4 Albumin 3.4 Globulin 4.0 Albumin/Globulin Ratio 0.9 Urine Color Urine Appearance Urine pH Ur Specific [place] Urine Protein Urine Glucose (UA) Urine Ketones Urine Blood Urine Nitrite Urine Bilirubin Urine Urobilinogen Ur Leukocyte Esterase Urine WBC (Auto) Urine RBC (Auto) U Hyaline Cast (Auto) U Epithel Cells (Auto) Urine Bacteria (Auto) 03/11/20 11:35 WBC RBC Hgb Hct MCV MCH MCHC RDW Std Deviation RDW Coeff of Sommer Plt Count MPV Immature Gran % (Auto) Neut % (Auto) Lymph % (Auto) [place] % (Auto) Eos % (Auto) Baso % (Auto) Neut # (Auto) Lymph # (Auto) [place] # (Auto) Eos # (Auto) Baso # (Auto) Immature Gran # (Auto) PT INR APTT PTT Ratio Sodium Potassium Chloride Carbon Dioxide Anion Gap BUN Creatinine Est Cr Clr Drug Dosing Est GFR ( Amer) Est GFR (Non-Af Amer) BUN/Creatinine Ratio Glucose Calcium Magnesium Total Bilirubin AST ALT Alkaline Phosphatase Troponin I NT-Pro-B Natriuret Pep Total Protein Albumin Globulin Albumin/Globulin Ratio Urine Color Dark Yellow Urine Appearance Clear Urine pH 5.0 Ur Specific [place] 1.019 Urine Protein 1+ H Urine Glucose (UA) Negative Urine Ketones Negative Urine Blood Negative Urine Nitrite Negative Urine Bilirubin Negative Urine Urobilinogen Negative Ur Leukocyte Esterase Negative Urine WBC (Auto) 1-5 Urine RBC (Auto) 0-4 U Hyaline Cast (Auto) 1-5 U Epithel Cells (Auto) 10-20 H Urine Bacteria (Auto) Negative Diagnostic Findings Echo report reviewed as noted in HPI. ECG personally reviewed. ECG 03/11/2020: Sinus rhythm with first-degree AV block. 71 beats per minute. IVC be. Lateral T-wave inversion. Cannot exclude anterior infarct. CXR 03/11/2020: No acute findings. Medications Administered Current Inpatient Medications Acetaminophen (Acetaminophen 325 Mg Tab) 650 mg PO Q4H PRN PRN Reason: Pain or Fever Stop: 04/10/20 14:40 Al Hydrox/Mg Hydrox/Simethicone (Aluminum/Magnesium Susp 30 Ml Udc) 15 ml PO Q4H PRN PRN Reason: Dyspepsia Stop: 04/10/20 14:40 Allopurinol (Allopurinol 100 Mg Tab) 50 mg PO QAM [facility] Stop: 04/11/20 08:59 Aspirin (Aspirin 81 Mg Ectab) 81 mg PO QAM [facility] Stop: 04/11/20 08:59 Atorvastatin Calcium (Atorvastatin 20 Mg Tab) 20 mg PO HS [facility] Stop: 04/10/20 20:59 Diclofenac Sodium (Diclofenac Sod 1% Gel 100 Gm Tube) 2 gm EXT QID PRN PRN Reason: Pain Stop: 04/10/20 14:40 Enoxaparin Sodium (Enoxaparin Inj 40 Mg/0.4 Ml Syr) 40 mg SQ Q24H [facility] Stop: 04/10/20 15:59 Dobutamine HCl 500 mg/ (Dextrose) 250 mls @ 5.13 mls/hr IV .Q24H [facility]; Protocol Stop: 04/10/20 14:44 Last Admin: 03/11/20 15:27 Dose: 2.5 mcg/kg/min, 5.1 mls/hr Documented by: Metoprolol Tartrate (Metoprolol Tartrate 25 Mg Tab) 12.5 mg PO BID G[facility]EL Stop: 04/10/20 20:59 Ondansetron HCl (Ondansetron Inj 2 Mg/Ml 2 Ml Vial) 4 mg IV Q6H PRN PRN Reason: Nausea Stop: 04/10/20 14:40 Polyethylene Glycol (Polyethylene (Miralax) 17 Gm Pack) 17 gm PO DAILY PRN PRN Reason: Constipation Stop: 04/10/20 14:40 PG Care Time/CCT Total # of Minutes Spent Total Time Spent with Patient: Total time spent is greater than 50% in coordination of care (as documented) at patient's floor/unit and/or counseling patient: Coding Level of Care Code 80178 Initial Inpt Care Lvl 3 Diagnoses Chronic systolic CHF (congestive heart failure) I50.22 Ischemic cardiomyopathy I25.5 CAD (coronary artery disease) I25.10 S/P CABG x 3 Z95.1 Hypotension I95.9 S/P mitral valve replacement Z95.2 Mitral regurgitation I34.0 Tricuspid regurgitation I07.1 Nonsustained ventricular tachycardia I47.2
[2020-03-11] MEDS: ENOXAPARIN INJ 40 MG/0.4 ML SYR SQ SCH (17:42)
[2020-03-11] MEDS: METOPROLOL TARTRATE 25 MG TAB PO SCH (20:48)
[2020-03-11] MEDS: ATORVASTATIN 20 MG TAB PO SCH (20:49)
[2020-03-11] MEDS ORDERED: PNEUMOCOCCAL Polysaccharide Vaccine 25mcg/0.5mL vial/Syr IM ONE (22:00)
[2020-03-12 06:47] LABS: BUN Creatinine Ratio 30.8 (10-20); Calcium 8.4 mg/dl (8.5-10.1); Creatinine Clr Calc Pharmacy 36.5 ml/min; Est GFR (African American) 45.4; Est GFR (Non-African American) 39.1; Magnesium 2.4 mg/dl (1.8-2.4); Potassium 5.2 mmol/L (3.5-5.1)
[2020-03-12] MEDS: METOPROLOL TARTRATE 25 MG TAB PO SCH (08:15)
[2020-03-12] MEDS: ASPIRIN 81 MG ECTAB PO SCH (08:16)
[2020-03-12] MEDS: allopurinoL 100 MG TAB PO SCH (08:16)
--- NOTE | 2020-03-12 12:16 | Cardiology Progress Note ---
Date of Service March 12, 2020 Assessment & Plan (1) Chronic systolic CHF (congestive heart failure): (2) Ischemic cardiomyopathy: (3) CAD (coronary artery disease): (4) S/P CABG x 3: (5) Hypotension: (6) S/P mitral valve replacement: (7) Mitral regurgitation: (8) Tricuspid regurgitation: (9) Nonsustained ventricular tachycardia: ASSESSMENT/PLAN: 1. Chronic systolic CHF: Class 4 symptoms on presentation, despite not appearing significantly hypervolemic. He feels back to his baseline without diuretic, but rather initiation of dobutamine. Concerning that his dyspnea may be related more so to poor pump function. Continue dobutamine at 2.5 mcg/kg/min. He is interested in meeting with a tertiary care center where advanced heart failure therapies are available. Will discuss with [place] [facility] this upcoming week to help determine location. He has no specific preference. Resume home dose of Lasix 40 mg p.o. daily. Unfortunately, he did not collect his urine but started doing so today for fluid balance calculation. 2. Ischemic cardiomyopathy: Has had severely reduced LV systolic function for many years. He did not tolerate Entresto due to symptomatic hypotension with systolic pressures in the 70s as an outpatient. He has not received beta- wayne due to mild hypotension here. Changed hold parameters to systolic blood pressure less than 90. Metoprolol succinate 12.5 mg once daily initiated in place of tartrate. ICD in place for primary prevention. Takes spironolactone at home but he is mildly hyperkalemic. 3. CAD s/p CABG x 3: No angina. Continue aspirin 81 mg daily. Continue statin therapy. Continue beta-wayne as tolerated. 4. Mitral valve replacement with mitral regurgitation: Chronic issue. SBE prophylaxis for dental procedures. 5. Tricuspid regurgitation: Noted to be significant earlier this month but also in outpatient November 2019 echo. 6. Nonsustained ventricular tachycardia: Nonsustained ventricular tachycardia. Resuming beta-wayne as above. 7. Hypotension: Blood pressure has improved with dobutamine. 8. Disposition: Significantly ill individual with overall poor prognosis. Patient care communicated with Dr. Meléndez of the primary hospitalist service. 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 Admission and Anticipated Discharge Date Admission Date: March 11, 2020 Subjective He feels much better today. He was not given any additional diuretic yesterday and has only had dobutamine at low dose, but with this therapy, he feels back to his baseline. He was able to walk 3 laps around the nursing station and denies any shortness of breath. He states that before that he couldn't walk 0.5 laps without getting dyspnea. He denies orthopnea, syncope, near-syncope, chest pain, palpitations, edema, or bleeding. He is interested in being evaluated at a tertiary care center where advanced heart failure therapies are available. He was alone in his hospital room. Review of systems: As above. Physical Exam Physical Exam: Gen.: No acute distress. Alert and oriented. HEENT: Anicteric sclera. Neck: No significant JVD. No hepatic jugular reflux. Cardiac: Regular. Normal S1-S2. 2/6 harsh holosystolic murmur best heard at the apex, radiating to the left axilla. No rubs, or gallops. Pulmonary: Clear to auscultation bilaterally without wheezes, rales, or rhonchi. Abdomen: Soft, nontender, nondistended, with normoactive bowel sounds. No bruits noted. Extremities: 2+ radial pulses bilaterally. 2+ posterior tibialis pulses bilaterally. Trace bilateral lower extremity edema. No cyanosis. Psychiatric: Affect appears appropriate. Results & Data ([facility]) Vital Signs (Past 12 Hours) Vital Signs Temp Pulse Resp BP Pulse Ox 03/12/20 11:50 36.7 C 68 20 102/70 99 03/12/20 07:39 36.7 C 69 18 95/52 L 95 03/12/20 02:39 36.8 C 62 16 99/64 L 95 Intake & Output 03/10/20 03/11/20 03/12/20 03/13/20 06:59 06:59 06:59 06:59 Intake Total 478.88 / 478.88 Output Total 350 / 350 Balance 478.88 / 478.88 -350 / -350 Weight 68.8 kg Laboratory Results Laboratory Results - last 24 hr 03/12/20 05:38 Sodium 139 Potassium 5.2 H Chloride 110 H Carbon Dioxide 24 Anion Gap 4.0 BUN 53 H Creatinine 1.71 H Est Cr Clr Drug Dosing 36.5 Est GFR ( Amer) 45.4 Est GFR (Non-Af Amer) 39.1 BUN/Creatinine Ratio 30.8 H Glucose 84 Calcium 8.4 L Magnesium 2.4 Diagnostic Findings Telemetry personally reviewed: Predominantly sinus rhythm but there were 2 episodes of ventricular tachycardia up to 5 beats in duration. Medications Administered Current Inpatient Medications Acetaminophen (Acetaminophen 325 Mg Tab) 650 mg PO Q4H PRN PRN Reason: Pain or Fever Stop: 04/10/20 14:40 Al Hydrox/Mg Hydrox/Simethicone (Aluminum/Magnesium Susp 30 Ml Udc) 15 ml PO Q4H PRN PRN Reason: Dyspepsia Stop: 04/10/20 14:40 Allopurinol (Allopurinol 100 Mg Tab) 50 mg PO [facility] Stop: 04/11/20 08:59 Last Admin: 03/12/20 08:16 Dose: 50 mg Documented by: Aspirin (Aspirin 81 Mg Ectab) 81 mg PO [facility] Stop: 04/11/20 08:59 Last Admin: 03/12/20 08:16 Dose: 81 mg Documented by: Atorvastatin Calcium (Atorvastatin 20 Mg Tab) 20 mg PO HS [facility] Stop: 04/10/20 20:59 Last Admin: 03/11/20 20:49 Dose: 20 mg Documented by: Diclofenac Sodium (Diclofenac Sod 1% Gel 100 Gm Tube) 2 gm EXT QID PRN PRN Reason: Pain Stop: 04/10/20 14:40 Enoxaparin Sodium (Enoxaparin Inj 40 Mg/0.4 Ml Syr) 40 mg SQ Q24H [facility] Stop: 04/10/20 15:59 Last Admin: 03/11/20 17:42 Dose: Not Given Documented by: Furosemide (Furosemide 40 Mg Tab) 40 mg PO [facility] Stop: 04/11/20 12:14 Dobutamine HCl 500 mg/ (Dextrose) 250 mls @ 5.13 mls/hr IV .Q24H [facility]; Protocol Stop: 04/10/20 14:44 Last Titration: 03/12/20 06:55 Dose: 2.5 mcg/kg/min, 5.1 mls/hr Documented by: Metoprolol Succinate (Metoprolol Succ 25mg Ext Rel Tab) 12.5 mg PO [facility] Stop: 04/11/20 12:14 Ondansetron HCl (Ondansetron Inj 2 Mg/Ml 2 Ml Vial) 4 mg IV Q6H PRN PRN Reason: Nausea Stop: 04/10/20 14:40 Polyethylene Glycol (Polyethylene (Miralax) 17 Gm Pack) 17 gm PO DAILY PRN PRN Reason: Constipation Stop: 04/10/20 14:40 PG Care Time/CCT Total # of Minutes Spent Total Time Spent with Patient: Total time spent is greater than 50% in 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
[2020-03-12] MEDS: FUROSEMIDE 40 MG TAB PO SCH (12:51)
[2020-03-12] MEDS: METOPROLOL SUCC 25MG EXT REL TAB PO SCH (12:52)
[2020-03-12] MEDS: ENOXAPARIN INJ 40 MG/0.4 ML SYR SQ SCH (16:45)
--- NOTE | 2020-03-12 17:12 | Hospitalist Progress Note ---
Date of Service March 12, 2020 Assessment & Plan (1) Ischemic cardiomyopathy: Echo in 02/2020 was 15%. He is in refractory heart failure with need for dobutamine. - Seen by cardiology today; plan to keep him on gtt until we can reach out tomorrow for advanced therapies at a different center. - Continue home Lasix - Hold Entresto - (2) Hypertension: BP today is 100/70. - Continue beta-wayne - Hold spironolactone (3) Biventricular implantable cardioverter-defibrillator (ICD) in situ: For primary prevention. - Noted (4) COPD (chronic obstructive pulmonary disease): On no home inhalers. - Monitor (5) DVT prophylaxis: Lovenox 40 mg SQ daily Admission and Anticipated Discharge Date Admission Date: March 11, 2020 Subjective Patient feels well today. Much more energy now that he's on the dobutamine gtt. Reports no fevers/chills, chest pain, shortness of breath, abdominal pain, nausea, or vomiting. Physical Exam Constitutional: WD/WN, vitals as above Eyes: EOM intact bilaterally; no conjunctival abnormality ENMT: external ear and nose normal, oropharynx normal Neck: trachea midline, no thyromegaly normal visual inspection Respiratory: normal respiratory effort, lungs clear to auscultation no respiratory distress Cardiovascular: Rate/Rhythm: regular rate and regular rhythm Heart Sounds: normal S1 and normal S2 Vessels: + JVD (To mid-neck.) Extremities: no edema Gastrointestinal (Abdomen): Inspection/Auscultation: abdomen normal to inspection; abdomen not distended Musculoskeletal: no cyanosis or clubbing, extremities motor strength 5/5 Skin: no rashes, warm and dry Neurologic: moves all extremities and awake Psychiatric: Orientation: alert, oriented to person and cooperative Results & Data Results & Data ([facility]) Vital Signs (Past 12 Hours) Vital Signs Temp Pulse Resp BP BP Pulse Ox 03/12/20 15:04 36.6 C 62 16 101/68 97 03/12/20 11:50 36.7 C 68 20 102/70 99 03/12/20 07:39 36.7 C 69 18 95/52 L 95 PG Care Time/CCT Total # of Minutes Spent Total Time Spent with Patient: Total time spent is greater than 50% in coordination of care (as documented) at patient's floor/unit and/or counseling patient: Coding Level of Care Code 86278 Subseq Hosp Care Lvl 3 Diagnoses Ischemic cardiomyopathy I25.5 Hypertension I10 Biventricular implantable cardioverter-defibrillator (ICD) in situ Z95.810 COPD (chronic obstructive pulmonary disease) J44.9 DVT prophylaxis Z29.9
[2020-03-12] MEDS: ATORVASTATIN 20 MG TAB PO SCH (20:56)
--- NOTE | 2020-03-13 05:42 | Electrocardiogram Report ---
Test Reason : Blood Pressure : / mmHG Vent. Rate : 071 BPM Atrial Rate : 071 BPM P-R Int : 234 ms QRS Dur : 136 ms QT Int : 438 ms P-R-T Axes : 056 -50 124 degrees QTc Int : 475 ms Sinus rhythm with 1st degree A-V block Left axis deviation Non-specific intra-ventricular conduction block Cannot rule out Anterior infarct , age undetermined T wave abnormality, consider lateral ischemia Abnormal ECG When compared with ECG of 01-MAR-2020 22:33, Premature ventricular complexes are no longer Present CO interval has increased Confirmed by Bro Heard ([id number]) on 03/13/2020 5:42:04 AM Referred By: REFERRED SELF Confirmed By:Bro Heard
[2020-03-13 06:07] LABS: Hematocrit (blood only) 34.9 % (42-52); Hemoglobin 11.5 g/dL (14.0-18.0); Mean Corpuscular Hemoglobin 31.5 pg (25-34); Mean Corpuscular Volume 95.6 fL (80-100); Mean Platelet Volume 10.9 fL (7.4-10.4); Platelet Count 225 K/uL (130-400); RDW Coefficient of Variation 15.2 % (11.5-14.5); RDW Standard Deviation 52.9 fL (36.4-46.3); Red Blood Count 3.65 M/uL (4.7-6.1); White Blood Count 6.94 K/uL (4.8-10.8)
[2020-03-13 06:42] LABS: BUN Creatinine Ratio 31.2 (10-20); Calcium 8.3 mg/dl (8.5-10.1); Creatinine Clr Calc Pharmacy 39.8 ml/min; Est GFR (African American) 50.3; Est GFR (Non-African American) 43.4; Magnesium 2.1 mg/dl (1.8-2.4); Phosphorus 4.5 mg/dl (2.5-4.9); Potassium 4.4 mmol/L (3.5-5.1)
[2020-03-13] MEDS: allopurinoL 100 MG TAB PO SCH (08:04)
[2020-03-13] MEDS: METOPROLOL SUCC 25MG EXT REL TAB PO SCH (08:04)
[2020-03-13] MEDS: ASPIRIN 81 MG ECTAB PO SCH (08:05)
[2020-03-13] MEDS: FUROSEMIDE 40 MG TAB PO SCH (08:05)
[2020-03-13] MEDS ORDERED: METOPROLOL SUCC 25MG EXT REL TAB PO STA (12:33)
--- NOTE | 2020-03-13 13:54 | Cardiology Progress Note ---
Date of Service March 13, 2020 Assessment & Plan (1) Chronic systolic CHF (congestive heart failure): (2) Ischemic cardiomyopathy: (3) CAD (coronary artery disease): (4) S/P CABG x 3: (5) Hypotension: (6) S/P mitral valve replacement: (7) Mitral regurgitation: (8) Tricuspid regurgitation: (9) S/P ICD (internal cardiac defibrillator) procedure: (10) Nonsustained ventricular tachycardia: ASSESSMENT/PLAN: 1. Chronic systolic CHF: Class 4 symptoms on presentation, despite not appearing significantly hypervolemic. On dobutamine, without diuretic initially, he reports class 2 symptoms. Concerning that his dyspnea may be related more so to poor pump function with valvular disease. Continue dobutamine at 2.5 mcg/kg/min. He had a reasonable diuresis yesterday with 40 mg of p.o. Lasix while on dobutamine. Discussed once again being evaluated by heart failure specialist for consideration of advanced therapy modalities. He asked if he can be discharged first. It was recommended that we first discuss things with a tertiary care center so that he does not get discharged and have no follow-up for months. He was agreeable. [facility], and discussed his presentation and treatment plans. She was agreeable and recommended pursuing community program assistant as there is no local [place] specialist in this regard. 2. Ischemic cardiomyopathy: Has had severely reduced LV systolic function for many years. He did not tolerate Entresto due to symptomatic hypotension with systolic pressures in the 70s as an outpatient. Continue metoprolol succinate but will increase to 25 mg daily as he was taking a higher dose at home. ICD in place for primary prevention. Takes spironolactone at home but he was mildly hyperkalemic. 3. CAD s/p CABG x 3: No angina. Continue aspirin 81 mg daily. Continue statin therapy. Continue beta-wayne as tolerated. 4. Mitral valve replacement with mitral regurgitation: Chronic issue. SBE prophylaxis for dental procedures. 5. Tricuspid regurgitation: Noted to be significant in February of 2020 but also in outpatient November 2019 echo, likely a more chronic issue. 6. Nonsustained ventricular tachycardia: Nonsustained ventricular tachycardia. Titrating beta-wayne as he does take higher dose at home. 7. Hypotension: Blood pressure has improved with dobutamine. From a symptom standpoint, he has improved dramatically and quite quickly with dobutamine both during this hospitalization and last hospitalization earlier in February of 2020. 8. s/p ICD: For primary prevention. Single lead ICD based on chest x-ray imaging. Reportedly [employer] device. Given [place] last hospitalization and this hospitalization, will ask EP to interrogate tomorrow. 9. Disposition: Significantly ill individual with overall poor prognosis. Patient care has been discussed with his primary steel tier through the [place] system ([facility]). Patient care also communicated with Dr. Meléndez of the primary hospitalist service. Admission and Anticipated Discharge Date Admission Date: March 11, 2020 Subjective He feels very well. He continues to walk around the hallway on multiple occasions per he and nursing staff. He denies any shortness of breath, chest pain, syncope, near-syncope, orthopnea, palpitations, edema, or bleeding. He would like to go home soon. A call was placed to his primary steel tier, Tracy Jaeger, at the [facility]. We have discussed his care and treatment options via telephone. Review of systems: As above. Physical Exam Physical Exam: Gen.: No acute distress. Alert and oriented. HEENT: Anicteric sclera. Neck: Prominent V-wave. No hepatic jugular reflux. Cardiac: Regular. Normal S1-S2. 2/6 holosystolic murmur best heard at the apex, radiating to the left axilla. No rubs, or gallops. Pulmonary: Clear to auscultation bilaterally without wheezes, rales, or rhonchi. Abdomen: Soft, nontender, nondistended, with normoactive bowel sounds. No bruits noted. Extremities: 2+ radial pulses bilaterally. 2+ posterior tibialis pulses bilaterally. No significant pitting edema. No cyanosis. Psychiatric: Affect appears appropriate. Results & Data ([facility]) Vital Signs (Past 12 Hours) Vital Signs Temp Pulse Pulse Resp BP BP Pulse Ox 03/13/20 11:33 36.8 C 64 17 102/68 97 03/13/20 08:00 101/64 03/13/20 07:42 36.7 C 66 18 109/69 94 03/13/20 07:24 67 03/13/20 03:26 36.6 C 68 17 106/70 96 Intake & Output 03/11/20 03/12/20 03/13/20/27/20 06:59 06:59 06:59 06:59 Intake Total 478.88 / 478.88 802.645 / 802.645 828.475 / 828.475 Output Total 2500 / 2500 300 / 300 Balance 478.88 / 478.88 -1697.355 / -1697.355 528.475 / 528.475 Weight 68.8 kg 68.5 kg Laboratory Results Laboratory Results - last 24 hr 03/13/20 03/13/20 05:32 05:32 WBC 6.94 RBC 3.65 L Hgb 11.5 L Hct 34.9 L MCV 95.6 MCH 31.5 MCHC 33.0 RDW Std Deviation 52.9 H RDW Coeff of Sommer 15.2 H Plt Count 225 MPV 10.9 H Sodium 140 Potassium 4.4 D Chloride 108 H Carbon Dioxide 25 Anion Gap 7.0 BUN 49 H Creatinine 1.57 H Est Cr Clr Drug Dosing 39.8 Est GFR ( Amer) 50.3 Est GFR (Non-Af Amer) 43.4 BUN/Creatinine Ratio 31.2 H Glucose 78 Calcium 8.3 L Phosphorus 4.5 Magnesium 2.1 Diagnostic Findings Telemetry personally reviewed: Sinus rhythm. Nonsustained ventricular tachycardia up to 26 beats (reportedly asymptomatic). Medications Administered Current Inpatient Medications Acetaminophen (Acetaminophen 325 Mg Tab) 650 mg PO Q4H PRN PRN Reason: Pain or Fever Stop: 04/10/20 14:40 Al Hydrox/Mg Hydrox/Simethicone (Aluminum/Magnesium Susp 30 Ml Udc) 15 ml PO Q4H PRN PRN Reason: Dyspepsia Stop: 04/10/20 14:40 Allopurinol (Allopurinol 100 Mg Tab) 50 mg PO [facility] Stop: 04/11/20 08:59 Last Admin: 03/13/20 08:04 Dose: 50 mg Documented by: Aspirin (Aspirin 81 Mg Ectab) 81 mg PO QAWW [facility] Stop: 04/11/20 08:59 Last Admin: 03/13/20 08:05 Dose: 81 mg Documented by: Atorvastatin Calcium (Atorvastatin 20 Mg Tab) 20 mg PO [facility] Stop: 04/10/20 20:59 Last Admin: 03/12/20 20:56 Dose: 20 mg Documented by: Diclofenac Sodium (Diclofenac Sod 1% Gel 100 Gm Tube) 2 gm EXT QID PRN PRN Reason: Pain Stop: 04/10/20 14:40 Enoxaparin Sodium (Enoxaparin Inj 40 Mg/0.4 Ml Syr) 40 mg SQ Q24H [facility] Stop: 04/10/20 15:59 Last Admin: 03/12/20 16:45 Dose: 40 mg Documented by: Furosemide (Furosemide 40 Mg Tab) 40 mg PO QAM [facility] Stop: 04/11/20 12:14 Last Admin: 03/13/20 08:05 Dose: 40 mg Documented by: Dobutamine HCl 500 mg/ (Dextrose) 250 mls @ 5.13 mls/hr IV .Q24H [facility]; Protocol Stop: 04/10/20 14:44 Last Admin: 03/13/20 12:48 Dose: 2.5 mcg/kg/min, 5.1 mls/hr Documented by: Metoprolol Succinate (Metoprolol Succ 25mg Ext Rel Tab) 25 mg PO QAWW [facility] Stop: 04/13/20 08:59 Ondansetron HCl (Ondansetron Inj 2 Mg/Ml 2 Ml Vial) 4 mg IV Q6H PRN PRN Reason: Nausea Stop: 04/10/20 14:40 Polyethylene Glycol (Polyethylene (Miralax) 17 Gm Pack) 17 gm PO DAILY PRN PRN Reason: Constipation Stop: 04/10/20 14:40 PG Care Time/CCT Total # of Minutes Spent Total Time Spent with Patient: Total time spent is greater than 50% in coordination of care (as documented) at patient's floor/unit and/or counseling patient: Coding Level of Care Code 57563 Subseq Hosp Care Lvl 3 Diagnoses Chronic systolic CHF (congestive heart failure) I50.22 Ischemic cardiomyopathy I25.5 CAD (coronary artery disease) I25.10 S/P CABG x 3 Z95.1 Hypotension I95.9 S/P mitral valve replacement Z95.2 Mitral regurgitation I34.0 Tricuspid regurgitation I07.1 S/P ICD (internal cardiac defibrillator) procedure Z95.810 Nonsustained ventricular tachycardia I47.2
--- NOTE | 2020-03-13 15:38 | Hospitalist Progress Note ---
Date of Service March 13, 2020 Assessment & Plan (1) Ischemic cardiomyopathy: Echo in 02/2020 was 15%. He is in refractory heart failure with need for dobutamine. - Seen by cardiology today; plan to keep him on gtt until we can reach out tomorrow for advanced therapies at a different center. - Continue home Lasix & statin - Hold Entresto - Doing well today. Plan to reach out to [facility] with approval from [place]; however, patient is getting more inclined to go home. (2) Hypertension: BP today is 95/70. - Continue beta-wayne -> Increased to 25 mg PO QAM by cardiology. - Hold spironolactone (3) Biventricular implantable cardioverter-defibrillator (ICD) in situ: For primary prevention. - Noted (4) COPD (chronic obstructive pulmonary disease): On no home inhalers. - Monitor (5) DVT prophylaxis: Lovenox 40 mg SQ daily Admission and Anticipated Discharge Date Admission Date: March 11, 2020 Subjective Feels well today. Reports no fevers/chills, chest pain, shortness of breath, abdominal pain, nausea, or vomiting. Physical Exam Constitutional: WD/WN, vitals as above Eyes: EOM intact bilaterally; no conjunctival abnormality ENMT: external ear and nose normal, oropharynx normal Neck: trachea midline, no thyromegaly normal visual inspection Respiratory: normal respiratory effort, lungs clear to auscultation no respiratory distress Cardiovascular: Rate/Rhythm: regular rate and regular rhythm Heart Sounds: normal S1 and normal S2 Vessels: + JVD (To mid-neck.) Extremities: no edema Gastrointestinal (Abdomen): Inspection/Auscultation: abdomen normal to inspection; abdomen not distended Musculoskeletal: no cyanosis or clubbing, extremities motor strength 5/5 Skin: no rashes, warm and dry Neurologic: moves all extremities and awake Psychiatric: Orientation: alert, oriented to person and cooperative Results & Data Results & Data ([facility]) Vital Signs (Past 12 Hours) Vital Signs Temp Pulse Pulse Resp BP BP Pulse Ox 03/13/20 14:49 36.5 C 67 20 95/70 L 99 03/13/20 11:33 36.8 C 64 17 102/68 97 03/13/20 08:00 101/64 03/13/20 07:42 36.7 C 66 18 109/69 94 03/13/20 07:24 67 PG Care Time/CCT Total # of Minutes Spent Total Time Spent with Patient: Total time spent is greater than 50% in coordination of care (as documented) at patient's floor/unit and/or counseling patient: Coding Level of Care Code 41603 Subseq Hosp Care Lvl 2 Diagnoses Ischemic cardiomyopathy I25.5 Hypertension I10 Biventricular implantable cardioverter-defibrillator (ICD) in situ Z95.810 COPD (chronic obstructive pulmonary disease) J44.9 DVT prophylaxis Z29.9
[2020-03-13] MEDS: ENOXAPARIN INJ 40 MG/0.4 ML SYR SQ SCH (17:08)
[2020-03-13] MEDS: ATORVASTATIN 20 MG TAB PO SCH (20:25)
[2020-03-14] MEDS: METOPROLOL SUCC 25MG EXT REL TAB PO SCH (07:35)
[2020-03-14] MEDS: FUROSEMIDE 40 MG TAB PO SCH (07:35)
[2020-03-14] MEDS: ASPIRIN 81 MG ECTAB PO SCH (07:35)
[2020-03-14] MEDS: allopurinoL 100 MG TAB PO SCH (07:35)
[2020-03-14] MEDS: DICLOFENAC SOD 1% GEL 100 GM TUBE EXT PRN ×3 (07:37→20:25)
[2020-03-14 08:59] LABS: BUN Creatinine Ratio 25.5 (10-20); Calcium 8.9 mg/dl (8.5-10.1); Creatinine Clr Calc Pharmacy 38.8 ml/min; Est GFR (African American) 48.8; Est GFR (Non-African American) 42.1; Potassium 4.4 mmol/L (3.5-5.1)
--- NOTE | 2020-03-14 11:06 | Cardiology Progress Note ---
Date of Service March 14, 2020 Assessment & Plan (1) Chronic systolic CHF (congestive heart failure): (2) Ischemic cardiomyopathy: (3) CAD (coronary artery disease): (4) S/P CABG x 3: (5) Hypotension: (6) S/P mitral valve replacement: (7) Mitral regurgitation: (8) Tricuspid regurgitation: (9) S/P ICD (internal cardiac defibrillator) procedure: (10) Nonsustained ventricular tachycardia: ASSESSMENT/PLAN: 1. Chronic systolic CHF: Class 4 symptoms on presentation, despite not appearing significantly hypervolemic. On dobutamine, without diuretic initially, class 2 symptoms. Concerning that his dyspnea may be related more so to poor pump function with valvular disease. Continue dobutamine at 2.5 mcg/kg/min. His only diuresis this hospitalization has been his home dose of oral Lasix and he is diuresing reasonably while on dobutamine. He has been accepted to transfer to [facility] for evaluation of advanced heart failure therapies verses home inotrope therapy as he appears to be inotrope dependent based on his last 2 hospitalizations here this month. (Prior hospitalization demonstrated significant improvement in symptoms only after dobutamine initiation, and after abrupt discontinuation, felt poorly quite quickly, once again significantly improving symptoms once dobutamine was restarted and then readmission less than 1 week later from home.) 2. Ischemic cardiomyopathy: Has had severely reduced LV systolic function for many years. He did not tolerate Entresto due to symptomatic hypotension with systolic pressures in the 70s as an outpatient. Continue metoprolol succinate at current dose for now. ICD in place for primary prevention. Takes spironolactone at home but he was mildly hyperkalemic earlier during this hospitalization. 3. CAD s/p CABG x 3: No angina. Continue aspirin 81 mg daily. Continue statin therapy. Continue beta-wayne as tolerated. Bypass grafts not known however based on chest x-ray imaging, he appears to have GARCIA. 4. Mitral valve replacement with mitral regurgitation: Chronic issue. SBE prophylaxis for dental procedures. 5. Tricuspid regurgitation: Noted to be significant in February of 2020 but also in outpatient November 2019 echo, likely a more chronic issue. 6. Nonsustained ventricular tachycardia: Nonsustained ventricular tachycardia. Less ventricular tachycardia on metoprolol succinate 25 mg daily. 7. Hypotension: Blood pressure has improved with dobutamine. From a symptom standpoint, he has improved dramatically and quite quickly with dobutamine both during this hospitalization and last hospitalization earlier in February of 2020. 8. s/p ICD: For primary prevention. Single lead ICD based on chest x-ray imaging. Reportedly [employer] device. EP interrogating device today with findings placed on chart. 9. Disposition: Significantly ill individual with overall poor prognosis. Patient care has been discussed with his primary teacher drama through the [place] system ([facility]). Patient care also communicated with Dr. Meléndez of the primary hospitalist service. Appreciate Dr. Welch's assistance at [facility] who has accepted him in transfer for further evaluation. Admission and Anticipated Discharge Date Admission Date: March 11, 2020 Subjective He feels well today. He denies chest pain, shortness of breath, syncope, near- syncope, palpitations, or bleeding. He continues to tolerate ambulating in the hallway while on dobutamine. He was alone in his hospital room. Review of systems: As above. Physical Exam Physical Exam: Gen.: No acute distress. Alert and oriented. HEENT: Anicteric sclera. Neck: Prominent V-wave. Cardiac: Regular. Normal S1-S2. 2/6 holosystolic murmur best heard at the apex. No rubs, or gallops. Pulmonary: Clear to auscultation bilaterally without wheezes, rales, or rhonchi. Abdomen: Soft, nontender, nondistended, with normoactive bowel sounds. No bruits noted. Extremities: 2+ radial pulses bilaterally. 2+ posterior tibialis pulses bilaterally. No significant pitting edema. No cyanosis. Psychiatric: Affect appears appropriate. Results & Data ([facility]) Vital Signs (Past 12 Hours) Vital Signs Temp Pulse Pulse Resp BP Pulse Ox 03/14/20 07:24 84 03/14/20 07:13 36.9 C 72 18 108/74 98 03/14/20 03:58 36.8 C 78 20 100/67 95 03/14/20 00:22 63 03/14/20 00:07 36.7 C 69 20 100/68 95 Intake & Output 03/12/20 03/13/20 03/14/20 03/15/20 06:59 06:59 06:59 06:59 Intake Total 478.88 / 478.88 802.645 / 514.783 7664.945 / 1130.945 Output Total 2500 / 2500 1900 / 1900 Balance 478.88 / 478.88 -1697.355 / -1697.355 -769.055 / -769.055 Weight 68.8 kg 68.5 kg 67.1 kg Laboratory Results Laboratory Results - last 24 hr 03/14/20 08:04 Sodium 139 Potassium 4.4 Chloride 106 Carbon Dioxide 26 Anion Gap 6.0 BUN 41 H Creatinine 1.61 H Est Cr Clr Drug Dosing 38.8 Est GFR ( Amer) 48.8 Est GFR (Non-Af Amer) 42.1 BUN/Creatinine Ratio 25.5 H Glucose 96 Calcium 8.9 Magnesium 2.0 Diagnostic Findings Telemetry personally reviewed: Sinus rhythm. PVCs. Ventricular triplet. Medications Administered Current Inpatient Medications Acetaminophen (Acetaminophen 325 Mg Tab) 650 mg PO Q4H PRN PRN Reason: Pain or Fever Stop: 04/10/20 14:40 Al Hydrox/Mg Hydrox/Simethicone (Aluminum/Magnesium Susp 30 Ml Udc) 15 ml PO Q4H PRN PRN Reason: Dyspepsia Stop: 04/10/20 14:40 Allopurinol ([facility]ol 100 Mg Tab) [facility] [place] [facility] Stop: 04/11/20 08:59 Last Admin: 03/14/20 07:35 Dose: 50 mg Documented by: Aspirin (Aspirin 81 Mg Ectab) [facility] [place] Stop: 04/11/20 08:59 Last Admin: 03/14/20 07:35 Dose: 81 mg Documented by: Atorvastatin Calcium (Atorvastatin 20 Mg Tab) 20 mg PO HS [facility] Stop: 04/10/20 20:59 Last Admin: 03/13/20 20:25 Dose: 20 mg Documented by: Diclofenac Sodium (Diclofenac Sod 1% Gel 100 Gm Tube) 2 gm EXT QID PRN PRN Reason: Pain Stop: 04/10/20 14:40 Last Admin: 03/14/20 07:37 Dose: 2 gm Documented by: Enoxaparin Sodium (Enoxaparin Inj 40 Mg/0.4 Ml Syr) 40 mg SQ Q24H [facility] Stop: 04/10/20 15:59 Last Admin: 03/13/20 17:08 Dose: 40 mg Documented by: Furosemide (Furosemide 40 Mg Tab) 40 mg PO QAM [facility] Stop: 04/11/20 12:14 Last Admin: 03/14/20 07:35 Dose: 40 mg Documented by: Dobutamine HCl 500 mg/ (Dextrose) 250 mls @ 5.13 mls/hr IV .Q24H [facility]; Protocol Stop: 04/10/20 14:44 Last Titration: 03/13/20 19:10 Dose: 2.5 mcg/kg/min, 5.1 mls/hr Documented by: Metoprolol Succinate (Metoprolol Succ 25mg Ext Rel Tab) 25 [facility] [place] Stop: 04/13/20 08:59 Last Admin: 03/14/20 07:35 Dose: 25 mg Documented by: Ondansetron HCl (Ondansetron Inj 2 Mg/Ml 2 Ml Vial) 4 mg IV Q6H PRN PRN Reason: Nausea Stop: 04/10/20 14:40 Polyethylene Glycol (Polyethylene (Miralax) 17 Gm Pack) 17 gm PO DAILY PRN PRN Reason: Constipation Stop: 04/10/20 14:40 PG Care Time/CCT Total # of Minutes Spent Total Time Spent with Patient: Total time spent is greater than 50% in coordination of care (as documented) at patient's floor/unit and/or counseling patient: Coding Level of Care Code 06598 Subseq Hosp Care Lvl 3 Diagnoses Chronic systolic CHF (congestive heart failure) I50.22 Ischemic cardiomyopathy I25.5 CAD (coronary artery disease) I25.10 S/P CABG x 3 Z95.1 Hypotension I95.9 S/P mitral valve replacement Z95.2 Mitral regurgitation I34.0 Tricuspid regurgitation I07.1 S/P ICD (internal cardiac defibrillator) procedure Z95.810 Nonsustained ventricular tachycardia I47.2
[2020-03-14] MEDS: ENOXAPARIN INJ 40 MG/0.4 ML SYR SQ SCH (15:44)
[2020-03-14] MEDS: ATORVASTATIN 20 MG TAB PO SCH (20:24)
[2020-03-15 06:10] LABS: Hematocrit (blood only) 32.8 % (42-52); Hemoglobin 10.5 g/dL (14.0-18.0); Mean Corpuscular Volume 96.8 fL (80-100); Mean Platelet Volume 11.2 fL (7.4-10.4); Platelet Count 231 K/uL (130-400); RDW Coefficient of Variation 15.1 % (11.5-14.5); RDW Standard Deviation 52.6 fL (36.4-46.3); Red Blood Count 3.39 M/uL (4.7-6.1); White Blood Count 8.27 K/uL (4.8-10.8)
[2020-03-15 06:34] LABS: BUN Creatinine Ratio 25.9 (10-20); Calcium 8.4 mg/dl (8.5-10.1); Creatinine Clr Calc Pharmacy 41.3 ml/min; Est GFR (African American) 52.7; Est GFR (Non-African American) 45.5; Potassium 4.1 mmol/L (3.5-5.1)
[2020-03-15] MEDS: allopurinoL 100 MG TAB PO SCH (09:19)
[2020-03-15] MEDS: FUROSEMIDE 40 MG TAB PO SCH (09:20)
[2020-03-15] MEDS: ASPIRIN 81 MG ECTAB PO SCH (09:21)
[2020-03-15] MEDS: METOPROLOL SUCC 25MG EXT REL TAB PO SCH (09:23)
[2020-03-15] MEDS: DICLOFENAC SOD 1% GEL 100 GM TUBE EXT PRN (09:23)
--- NOTE | 2020-03-15 14:00 | Cardiology Progress Note ---
Date of Service March 15, 2020 Assessment & Plan (1) Chronic systolic CHF (congestive heart failure): (2) Ischemic cardiomyopathy: (3) CAD (coronary artery disease): (4) S/P CABG x 3: (5) Hypotension: (6) S/P mitral valve replacement: (7) Mitral regurgitation: (8) Tricuspid regurgitation: (9) S/P ICD (internal cardiac defibrillator) procedure: (10) Nonsustained ventricular tachycardia: ASSESSMENT/PLAN: 1. Chronic systolic CHF: He continues to do well on current therapy. No changes recommended at this time. Class 4 symptoms on presentation, despite not appearing significantly hypervolemic. On dobutamine, without diuretic initially, class 2 symptoms. Concerning that his dyspnea may be related more so to poor pump function with valvular disease. Continue dobutamine at 2.5 mcg/kg/min. His only diuresis this hospitalization has been his home dose of oral Lasix and he is diuresing reasonably while on dobutamine. He has been accepted to transfer to [facility] for evaluation of advanced heart failure therapies verses home inotrope therapy as he appears to be inotrope dependent based on his last 2 hospitalizations here this month. (Prior hospitalization demonstrated significant improvement in symptoms only after dobutamine initiation, and after abrupt discontinuation, felt poorly quite quickly, once again significantly improving symptoms once dobutamine was restarted and then readmission less than 1 week later from home.) 2. Ischemic cardiomyopathy: Has had severely reduced LV systolic function for many years. He did not tolerate Entresto due to symptomatic hypotension with systolic pressures in the 70s as an outpatient. Continue metoprolol succinate at current dose for now. ICD in place for primary prevention. Takes spironolactone at home but he was mildly hyperkalemic earlier during this hospitalization and has since been held. Optimizing medications have been difficult due to symptomatic hypotension. 3. CAD s/p CABG x 3: No angina. Continue aspirin 81 mg daily. Continue statin therapy. Continue beta-wayne as tolerated. Bypass grafts not known however based on chest x-ray imaging, he appears to have GARCIA. 4. Mitral valve replacement with mitral regurgitation: Chronic issue. SBE prophylaxis for dental procedures. 5. Tricuspid regurgitation: Noted to be significant in February of 2020 but also in outpatient November 2019 echo, likely a more chronic issue. 6. Nonsustained ventricular tachycardia: Nonsustained ventricular tachycardia. He continues to have less ventricular tachycardia while on metoprolol succinate 25 mg daily. 7. Hypotension: Blood pressure has improved with dobutamine. From a symptom standpoint, he has improved dramatically and quite quickly with dobutamine both during this hospitalization and last hospitalization earlier in February of 2020. 8. s/p ICD: For primary prevention. Single lead ICD based on chest x-ray imaging. Reportedly [place] device. EP interrogating device today with findings placed on chart. 9. Disposition: Significantly ill individual with overall poor prognosis. Patient care communicated with Dr. Meléndez of the primary hospitalist service. He is awaiting transfer to [facility]. Cardiology will continue to follow while hospitalized. On discharge, he should follow-up with his primary medical record transcriber through the [place] system, Tracy Jaeger. Admission and Anticipated Discharge Date Admission Date: March 11, 2020 Subjective He continues to feel well while on dobutamine. He denies chest pain, shortness of breath, syncope, near-syncope, palpitations, edema, or bleeding. He continues to ambulate in the hallways without symptoms while on dobutamine. He was alone in his hospital room. He has been accepted to [facility] under the heart failure service. Yesterday, I spoke with Dr. Welch who accepted him to the general service and then later in the day, Dr. Adam, of the Heart failure Service. He is awaiting bed assignment. Review of systems: As above. Physical Exam Physical Exam: Gen.: No acute distress. Alert and oriented. HEENT: Anicteric sclera. Neck: Prominent V-wave. Cardiac: Regular. No ectopy. Normal S1-S2. 2/6 holosystolic murmur best heard at the apex. No rubs or gallops. Pulmonary: Clear to auscultation bilaterally without wheezes, rales, or rhonchi. Abdomen: Soft, nontender, nondistended, with normoactive bowel sounds. No bruits noted. Extremities: 2+ radial pulses bilaterally. 2+ posterior tibialis pulses bilaterally. No significant pitting edema. No cyanosis. Psychiatric: Affect appears appropriate. Results & Data ([facility]) Vital Signs (Past 12 Hours) Vital Signs Temp Pulse Resp BP BP Pulse Ox 03/15/20 11:31 36.6 C 78 18 104/70 97 03/15/20 07:30 36.9 C 64 18 96/61 L 92 03/15/20 04:41 36.8 C 62 14 108/73 98 Intake & Output 03/13/20 03/14/20 03/15/20 03/16/20 06:59 06:59 06:59 06:59 Intake Total 802.645 / 580.544 8170.945 / 9059.322 2446 / 1035 Output Total 2500 / 2500 1900 / 1900 1800 / 1800 Balance -1697.355 / -1697.355 -769.055 / -769.055 -765 / -765 Weight 68.5 kg 67.1 kg 69.3 kg Laboratory Results Laboratory Results - last 24 hr 03/15/20 03/15/20 05:40 05:40 WBC 8.27 RBC 3.39 L Hgb 10.5 L Hct 32.8 L MCV 96.8 MCH 31.0 MCHC 32.0 RDW Std Deviation 52.6 H RDW Coeff of Sommer 15.1 H Plt Count 231 MPV 11.2 H Sodium 139 Potassium 4.1 Chloride 108 H Carbon Dioxide 27 Anion Gap 4.0 BUN 39 H Creatinine 1.51 H Est Cr Clr Drug Dosing 41.3 Est GFR ( Amer) 52.7 Est GFR (Non-Af Amer) 45.5 BUN/Creatinine Ratio 25.9 H Glucose 84 Calcium 8.4 L Diagnostic Findings Telemetry personally reviewed: Sinus rhythm. PVCs. Short runs of nonsustained ventricular tachycardia up to 5 beats in the past 24 hours. Medications Administered Current Inpatient Medications Acetaminophen (Acetaminophen 325 Mg Tab) 650 mg PO Q4H PRN PRN Reason: Pain or Fever Stop: 04/10/20 14:40 Last Admin: 03/14/20 20:27 Dose: 650 mg Documented by: Al Hydrox/Mg Hydrox/Simethicone (Aluminum/Magnesium Susp 30 Ml Udc) 15 ml PO Q4 H PRN PRN Reason: Dyspepsia Stop: 04/10/20 14:40 Allopurinol (Allopurinol 100 Mg Tab) 50 mg PO [facility] Stop: 04/11/20 08:59 Last Admin: 03/15/20 09:19 Dose: 50 mg Documented by: Aspirin (Aspirin 81 Mg Ectab) 81 mg PO [facility] Stop: 04/11/20 08:59 Last Admin: 03/15/20 09:21 Dose: 81 mg Documented by: Atorvastatin Calcium (Atorvastatin 20 Mg Tab) 20 mg PO HS [facility] Stop: 04/10/20 20:59 Last Admin: 03/14/20 20:24 Dose: 20 mg Documented by: Diclofenac Sodium (Diclofenac Sod 1% Gel 100 Gm Tube) 2 gm EXT QID PRN PRN Reason: Pain Stop: 04/10/20 14:40 Last Admin: 03/15/20 09:23 Dose: 2 gm Documented by: Enoxaparin Sodium (Enoxaparin Inj 40 Mg/0.4 Ml Syr) 40 mg SQ Q24H [facility] Stop: 04/10/20 15:59 Last Admin: 03/14/20 15:44 Dose: 40 mg Documented by: Furosemide ([facility]ide 40 Mg Tab) [facility]: 04/11/20 12:14 Last Admin: 03/15/20 09:20 Dose: 40 mg Documented by: Dobutamine HCl 500 mg/ (Dextrose) 250 mls @ 5.13 mls/hr IV .Q24H [facility]; Protocol Stop: 04/10/20 14:44 Last Titration: 03/13/20 19:10 Dose: 2.5 mcg/kg/min, 5.1 mls/hr Documented by: Metoprolol Succinate (Metoprolol Succ 25mg Ext Rel Tab) 25 mg PO [facility] Stop: 04/13/20 08:59 Last Admin: 03/15/20 09:23 Dose: 25 mg Documented by: Ondansetron HCl (Ondansetron Inj 2 Mg/Ml 2 Ml Vial) 4 mg IV Q6H PRN PRN Reason: Nausea Stop: 04/10/20 14:40 Polyethylene Glycol (Polyethylene (Miralax) 17 Gm Pack) 17 gm PO DAILY PRN PRN Reason: Constipation Stop: 04/10/20 14:40 PG Care Time/CCT Total # of Minutes Spent Total Time Spent with Patient: Total time spent is greater than 50% in coordination of care (as documented) at patient's floor/unit and/or counseling patient: Coding Level of Care Code 12783 Subseq Hosp Care Lvl 3 Diagnoses Chronic systolic CHF (congestive heart failure) I50.22 Ischemic cardiomyopathy I25.5 CAD (coronary artery disease) I25.10 S/P CABG x 3 Z95.1 Hypotension I95.9 S/P mitral valve replacement Z95.2 Mitral regurgitation I34.0 Tricuspid regurgitation I07.1 S/P ICD (internal cardiac defibrillator) procedure Z95.810 Nonsustained ventricular tachycardia I47.2
--- NOTE | 2020-03-15 16:00 | Discharge Summary ---
Date of Service March 15, 2020 Admission HPI Per Admitting Provider 74-year-old male recently discharged from our facility approximately less than 1 week ago. He was admitted with ischemic cardiomyopathy and acute systolic heart failure requiring dobutamine infusion. He improved with dobutamine and was discharged on Entresto however he had persistent issues with hypotension which required him to stop both his beta-wayne and Entresto. He is markedly symptomatic becoming extremely fatigued and dyspneic with only a few steps. He presented to the emergency department on the recommendation of his physicians was seen in the emergency department by Dr. Heard cardiology. Patient is felt to have fairly significant ischemic cardiomyopathy with dyspnea. He is being admitted for intravenous dobutamine infusion with considerations of next steps with possible referral for aggressive interventions Principal Diagnosis Ischemic cardiomyopathy Discharge Exam Constitutional WD/WN, vitals as above Eyes EOM intact bilaterally; no conjunctival abnormality ENMT external ear and nose normal, oropharynx normal Neck trachea midline, no thyromegaly normal visual inspection Respiratory normal respiratory effort, lungs clear to auscultation no respiratory distress Cardiovascular Rate/Rhythm: regular rate and regular rhythm Heart Sounds: normal S1 and normal S2 Vessels: + JVD (To mid-neck.) Extremities: no edema Gastrointestinal (Abdomen) Inspection/Auscultation: abdomen normal to inspection; abdomen not distended Musculoskeletal no cyanosis or clubbing, extremities motor strength 5/5 Skin no rashes, warm and dry Neurologic moves all extremities and awake Psychiatric Orientation: alert, oriented to person and cooperative Discharge Data Allergies Allergy/AdvReac Type Severity Reaction Status Date / Time No Known Allergies Allergy Verified 03/11/20 10:58 Consultations 03/11/20 12:23 ED Decision to Admit Stat 03/11/20 14:41 Consult Cardiology Routine Hospital Course (1) Ischemic cardiomyopathy: Echo in 02/2020 was 15%. He is in refractory heart failure with need for dobutamine. - Seen by cardiology today; plan to keep him on gtt until we can reach out tomorrow for advanced therapies at a different center. - Continue home Lasix & statin - Held Entresto (2) Hypertension: BP today is 95/70. - Continue beta-wayne -> Increased to 25 mg PO QAM by cardiology. - Hold spironolactone (3) Biventricular implantable cardioverter-defibrillator (ICD) in situ: For primary prevention. - Noted (4) COPD (chronic obstructive pulmonary disease): On no home inhalers. - Monitor (5) DVT prophylaxis: Lovenox 40 mg SQ daily Total Time Total Time Spent Total Time Spent (In Minutes): 35 Discharge Plan Discharge Items Patient Disposition: Transfer Acute Care Hospital Reason For Visit: ISCHEMIC CARDIOMYOPATHY Discharge Diagnosis: Ischemic cardiomyopathy Activity: Resume your previous activity Non-emergency contact: Primary Care Provider Call non-emergency contact if: your pain is not controlled Follow-up/Referrals: William Doss MD [Primary Care Provider] - Diet: Heart Healthy Addtl Attending Provider Instructions: Admitted for advanced heart failure. Requiring dobutamine even though he is euvolemic. Transfer for LVAD work-up. Pending Studies at Discharge: No Stand-Alone Forms: [place] Skilled Items Patient informed of condition?: Yes DNR: No Discharge Level of Care: Other Communicable Disease: No Discharge Prognosis: Stable Lines: Peripheral IV Urinary Catheter: No Medications and DC Order Prescriptions: New metoprolol succinate 25 mg Tablet Extended Release 24 Hr 25 mg PO QAM Qty: 1 RF: 0 Continued atorvastatin 20 mg Tablet 20 mg PO HS RF: 0 aspirin [Adult Low Dose Aspirin] 81 mg Tablet,Delayed Release (Dr/Ec) 81 mg PO QAM RF: 0 diclofenac sodium [Voltaren] 1 % Gel 2 g TOPICAL QID PRN (Reason: Pain) RF: 0 allopurinol 100 mg Tablet 50 mg PO QAM RF: 0 spironolactone 25 mg Tablet 12.5 mg PO QAM RF: 0 furosemide 20 mg Tablet 40 mg PO QAM RF: 0 Discontinued Entresto 24-26 mg Tablet 1 tab PO BID 30 Days Qty: 60 RF: 0 metoprolol tartrate 25 mg Tablet 0 mg PO BID RF: 0 Discharge Orders: Discharge Order (Routine); Ordered 03/14/20 Ordered By: Malachi Meléndez Admission Data Admit Date/Time: 03/11/20 12:55 Attending Provider: Malachi Meléndez Admit Provider: Salas Alexis Primary Care Provider: William Doss Other Providers: Malachi Meléndez ; Salas Alexis ; Bro Heard Other Interventions: Discharge Summary Assessment (RN) Last Done: 03/14/20 18:47 Coding Level of Care Code D/C Day Management >30 mins Diagnoses Ischemic cardiomyopathy I25.5 Hypertension I10 Biventricular implantable cardioverter-defibrillator (ICD) in situ Z95.810 COPD (chronic obstructive pulmonary disease) J44.9 DVT prophylaxis Z29.9
[2020-03-15 16:46] VITALS: BP 104/70; PULSE 60; TEMP 97.9; O2SAT 97
== END 2020-03-15 15:00 | disposition short-term general hospital (02) | DRG 303 ==
LOC: ED 10:05 → 2S 12:55 → SUATTDRO 12:55 → 2S 13:33 → 2N 03-13 18:43